=== PATIENT | female | born 1965 | race Caucasian/White ===

== ENCOUNTER 2022-05-03 11:22 | Emergency (ER) | payer OTHER, SELFPAY ==
[2022-05-03 11:37] VITALS: BP 126/78; PULSE 76; RESP 18; TEMP 37.2; O2SAT 99; BMI 33.5
--- NOTE | 2022-05-03 12:15 | CRLHL7_ITS ---
For Patients: As a result of the Century Cures Act, medical imaging exams and procedure reports are released immediately into your electronic medical record. You may view this report before your referring provider. If you have questions, please contact your health care provider. Indication: Sinus pain and pressure, positive Covid last week Technique: Noncontrast CT of the paranasal sinuses. Coronal and sagittal reformats. Bone and soft tissue algorithms. Comparison: No relevant comparison studies available at this institution. Findings: Frontal sinuses: The frontal sinuses and frontal recesses are clear. Ethmoid air cells: The ethmoid air cells are clear. Symmetric depths of the olfactory fossa. The anterior ethmoidal arteries are well-covered by bone. Sphenoid sinuses: The sphenoid sinuses and sphenoethmoidal recesses are clear. No optic canal or carotid canal dehiscence. Maxillary sinuses: Mild mucosal thickening along the right alveolar recess. Clear left maxillary sinus and bilateral ostiomeatal units. Nasal cavity: Approximately 5 mm leftward nasal septal deviation with laterally projecting osseous spur contacting the lateral nasal wall.. No av bullosa. No paradoxical turbinates. Skull base, maxilla, TMJ: Periapical lucency associated with the right maxillary 1st molar. Mastoid air cells are clear. Orbits: Unremarkable Imaged intracranial structures: Unremarkable Regional soft tissues: Unremarkable IMPRESSION: 1. Mild mucosal thickening along right maxillary sinus alveolar recess, with underlying periapical lucency associated with the right maxillary 1st molar. 2. Remainder of the sinonasal cavity is clear. 3. Leftward nasal septal deviation measuring 5 mm, with laterally projecting spur contacting the left lateral nasal wall. Please note that all CT scans at this facility use dose modulation, iterative reconstruction, and/or weight-based dosing when appropriate to reduce radiation dose to as low as reasonably achievable. Dictated by Estella Love MD @ 05/03/2022 2:24:11 PM (Electronically Signed)
[2022-05-03 13:05] LABS: Strep A DNA Probe* NOT DETECTED (Not Detectd)
[2022-05-03 13:36] VITALS: BP 125/61; PULSE 76; RESP 16; O2SAT 97
--- NOTE | 2022-05-04 01:27 | ED_ITS ---
HPI - Headache General Chief Complaint: Headache/Migraine Stated Complaint: Headache, vision changes Time Seen by Provider: 05/03/22 11:59 History of Present Illness HPI Narrative: 56-year-old woman presenting to the emergency department with spouse with concern of headache and some visual changes. Was diagnosed with home testing with COVID 12 days ago. [place] [facility] [place] and azithromycin, apparently to ?get ahead of and ?COVID given her history of asthma. Also underlying history of diabetes and peripheral neuropathy. Ms. Eduardo Mcadams is particularly concerned about visual changes where there is sense of blurry vision at distance and it is amplified toward evenings. No loss of vision. Does note a history of a ?stroke? 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 Does also has some left- sided neck pain. She is worried about her sinuses as well and when bends forward feels tremendous pressure in her face. Also has a headache around her eyes. Little sore throat. No fever. No shortness of breath. Related Data Home Medications Medication Instructions Recorded Confirmed azithromycin 250 mg tablet mg 05/03/22 dexamethasone 4 mg tablet mg 05/03/22 gabapentin 300 mg capsule mg 05/03/22 hydrochlorothiazide 25 mg tablet mg 05/03/22 metformin 500 mg tablet,extended mg PO 05/03/22 release 24 hr Allergies Allergy/AdvReac Type Severity Reaction Status Date / Time No Known Drug Allergies Allergy Verified 05/03/22 11:36 Review of Systems Status of ROS: Reports: 10 or more systems reviewed and unremarkable except as noted in History and below PFSH PFS Social History Smoking Status: Never smoker Do you use any of these nicotine containing products: None Second hand tobacco smoke exposure: No How often do you have a drink containing alcohol: 2-3 times a week AUDIT-C Alcohol total score: 3 Non-prescribed substance use: denies use Exam Narrative: Exam Narrative: Pleasant. Of good energy. Skin is warm and dry. Cranial nerves 2-12 intact. There is no nystagmus. Funduscopic exam actually appears to show some rather healthy vasculature. Breathing easily. Lungs are clear. Heart is in a regular rate and rhythm. No murmur rub or gallop identified. Neck is supple mildly uncomfortable to rotate to extremes particularly to the left. She is tender at the upper left sternocleidomastoid muscle but I think even more anterior to that in the upper lymph node chain. Do not appreciate though discrete lymphadenopathy. Oropharynx with bright red macules and suggestion of some minor blistering scattered over the left hard to soft palate. Mild edema in the area but no significant asymmetry. These lesions do cross midline. Mouth is moist. Dentition in good repair. No other rashes are appreciated. Hands and feet appear/noted to be free of lesions. Const: Vital Signs, click to edit/add: Vital Signs - 24 hr 05/03/22 11:37 05/03/22 13:36 Temperature 99.0 F Pulse Rate [Right Pulse Oximeter] 76 76 Respiratory Rate 18 16 Blood Pressure [Ri ght Upper Arm] 126/78 125/61 Pulse Oximetry 99 97 Oxygen Delivery Me thod Room Air Room Air Documenting provider has reviewed patient's vital signs: yes Course Vital Signs Vital signs: Initial Vital Signs Temperature 99.0 F 05/03/22 11:37 Temperature Source Temporal Artery Scan 05/03/22 11:37 Pulse Rate 76 05/03/22 11:37 Respiratory Rate 18 05/03/22 11:37 Blood Pressure 126/78 05/03/22 11:37 Blood Pressure Mean 94 05/03/22 11:37 Blood Pressure Position Sitting 05/03/22 11:37 Pulse Oximetry 99 05/03/22 11:37 Oxygen Delivery Method 05/03/22 11:37 Vital Signs Temperature 99.0 F 05/03/22 11:37 Pulse Rate 76 05/03/22 11:37 Respiratory Rate 18 05/03/22 11:37 Blood Pressure 126/78 05/03/22 11:37 Pulse Oximetry 99 05/03/22 11:37 Oxygen Delivery Method 05/03/22 11:37 Temperature 99.0 F 05/03/22 11:37 Pulse Rate 76 05/03/22 13:36 Respiratory Rate 16 05/03/22 13:36 Blood Pressure 125/61 05/03/22 13:36 Pulse Oximetry 97 05/03/22 13:36 Oxygen Delivery Method 05/03/22 13:36 MDM - Headache MDM Narrative Medical decision making narrative: Does not appear to desire interventional treatment at this time. I proposed swabbing throat potentially for strep though I think this is more likely stomatitis. Has significant concerns regarding potential sinus problem; imaging available to me would allow us to do a sinus CT for more definitive assessment. We do decide to proceed with that. Strep testing ultimately was negative; not unexpected. Sinus CT reviewed by me shows some very mild mucosal thickening in the right maxillary sinus Over-read by Radiology obtained after patient departure. IMPRESSION: 1. Mild mucosal thickening along right maxillary sinus alveolar recess, with underlying periapical lucency associated with the right maxillary 1st molar. 2. Remainder of the sinonasal cavity is clear. 3. Leftward nasal septal deviation measuring 5 mm, with laterally projecting spur contacting the left lateral nasal wall. Lab Data Attestation: I reviewed the patient's lab results. Labs: Lab Results 05/03/22 Range/Units 12:13 Group A Strep DNA NOT DETECTED (Not Detectd) Discharge Plan Discharge Clinical Impression: Reactive cervical lymphadenopathy, COVID-19, Stomatitis Patient Disposition: Home w/ Parent or Adult Condition: Stable Additional Instructions: Stay well-hydrated. Return for marked increase in pain with neck rotation or significant difficulty swallowing for example not being able to maintain secretions. Can take up to 800 mg of ibuprofen or up to 1000 mg of acetaminophen per dose. Alternative to the ibuprofen might be up to 500 mg naproxen 2 times daily. Might try anesthetic throat lozenges or sprays for increasing discomfort in your throat/mouth. I would follow up in Ophthalmology for an eye recheck soon. I will call you for any further findings on imaging. (given radiology over-read of sinus CT and symptoms, consider ENT follow-up. Does not appear to have dental pain) Prescriptions: No Action azithromycin 250 mg tablet dexamethasone 4 mg tablet gabapentin 300 mg capsule Label Comments: TAKE 1 CAPSULE BY MOUTH IN THE MORNING AND 2 CAPSULES 2 HOURS BEFORE BEDTIME DAILY hydrochlorothiazide 25 mg tablet Label Comments: TAKE 1 TABLET BY MOUTH ONCE DAILY metformin 500 mg tablet extended release 24 hr PO Label Comments: TAKE 2 TABLETS BY MOUTH TWICE DAILY WITH MEALS . APPOINTMENT REQUIRED FOR FUTURE REFILLS Follow Up/Referrals: Provider,Not a Local [Primary Care Provider] - Stand Alone Forms: [employer] Info Instructions
== END 2022-05-03 14:25 | disposition home or self-care (01) ==
PROVIDERS: Emergency Provider Family Medicine
DX: U07.1 COVID-19 (principal); K12.1 Other forms of stomatitis; R59.1 Generalized enlarged lymph nodes
CPT/HCPCS: 70486; 87651; 99284

== ENCOUNTER 2023-08-12 22:40 | Emergency (ER) | payer OTHER, SELFPAY ==
[2023-08-12 22:46] VITALS: BP 149/84; PULSE 79; RESP 20; TEMP 35.9; O2SAT 98; BMI 36.9
--- NOTE | 2023-08-12 23:19 | XR_ITS ---
Patient: MARIO FRANCOIS Facility:?[facility] Patient ID:?[id number] Site Patient ID:?[id number]. Site :?[id number] Study:?XRay-Chest 2 VIEW-08/12/2023 11:29:59 PM Ordering Physician:CHILO Final Report: INDICATION: Chest pain TECHNIQUE: Chest radiograph 2 views COMPARISON: 02/07/2023 FINDINGS: Mediastinum: The mediastinum is normal in appearance. The heart silhouette is normal in size and morphology. Lung: Both lungs are unremarkable in appearance. No sign of pleural effusion seen. No pneumothorax is identified. Bone and Soft tissue: Unremarkable for age. IMPRESSION: 1. No acute cardiopulmonary disease is seen. Dictated by: Brian Storm MD @ 08/12/2023 23:32:16 Signed by:María Storm MD @08/12/2023 11:32:16 PM (Electronic Signature)
--- NOTE | 2023-08-12 23:20 | ED.GENADULT ---
HPI - General Adult General Chief complaint: Chest Pain Stated complaint: Chest pain, high BP Time Seen by Provider: 08/12/23 23:01 Source: patient Mode of arrival: ambulatory Limitations: no limitations History of Present Illness HPI narrative: 57-year-old female with a history of hypertension, diabetes and family history of coronary artery disease presents to the emergency department with spasm like chest pain that lasted a 45-60 seconds about 1 hour prior to arrival. Does have a history of esophageal spasm but states that this pain felt different. It radiated up to the throat bilaterally. Was accompanied by a vague sensation of slight lightheadedness, no shortness of breath. Cannot reproduce with deep breath, movement or palpation. She checked her blood pressure and it was 162 over 90s. She has no history of DVT or PE. She has had no prior cardiac stress test. No prior echo or history of arrhythmia. When asked about recent exertional symptoms, she states that she gets a little more short of breath going up stairs lately but does not give any specific exertional type chest pain. Admits that she has been more sedentary since the beginning of the year. Her mother went on hospice and then , patient gained probably about 10 lb during this 6 week. It admits to a lot of more intense emotional feelings. No nausea or vomiting, no injury or trauma. Did take 3 baby aspirin prior to coming to ED. denies prior history of similar symptoms. Did not try any other interventions prior to coming to ED. not currently symptomatic. Past medical history notable for hypertension, diabetes, neuropathy. Home meds are hydrochlorothiazide for her hypertension, metformin for diabetes, gabapentin for neuropathy and rosuvastatin. Family history notable for quadruple bypass in father in his late 60s, mom with a history of low blood pressure and had a pacemaker. No family history of DVT or PE. Nonsmoker. No allergies. ROS notable for the chest symptoms as described above only, otherwise denies times 12 systems. Related Data Home Medications Medication Instructions Recorded Confirmed gabapentin 300 mg capsule 300 mg 05/03/22 02/07/23 hydrochlorothiazide 25 mg tablet 25 mg 05/03/22 02/07/23 metformin 500 mg tablet,extended 2,000 mg PO 05/03/22 02/07/23 release 24 hr estradiol 0.01% (0.1 mg/gram) vaginal 10/20/23 10/20/23 vaginal cream rosuvastatin 10 mg tablet 10 mg PO QPM 02/07/23 08/12/23 Previous Rx's Medication Instructions Recorded albuterol sulfate 90 mcg/actuation 2 puff inhalation Q4-6H PRN 02/07/23 aerosol inhaler shortness of breath or wheezing #6.7 grams famotidine 20 mg tablet 20 mg PO DAILY #30 tabs 08/13/23 Allergies Allergy/AdvReac Type Severity Reaction Status Date / Time No Known Drug Allergies Allergy Verified 02/07/23 18:33 PFSH PFS Social History Smoking Status: Never smoker Do you use any of these nicotine containing products: None Second hand tobacco smoke exposure: No How often do you have a drink containing alcohol: 2-3 times a week AUDIT-C Alcohol total score: 3 Non-prescribed substance use: denies use Exam Const: Vital Signs, click to edit/add: Vital Signs - 24 hr 08/12/23 22:46 Temperature 96.7 F L Pulse Rate [Pulse Oximeter] 79 Respiratory Rate 20 Blood Pressure [Ri ght Upper Arm] 149/84 H Pulse Oximetry 98 Oxygen Delivery Me thod Room Air Documenting provider has reviewed patient's vital signs: yes Common normals: no apparent distress General appearance: cooperative, comfortable and well kempt HENMT: Common normals: normocephalic, moist oral mucous membranes and oropharynx normal Head and scalp: normocephalic Face and sinus: normal facial exam Eye: Common normals: conjunctivae normal General eye: normal appearance of both eyes Conjunctiva: conjunctiva(e) normal Neck & C-Spine: Common normals: full ROM and no lymphadenopathy Chest: Common normals: palpation of chest normal Resp: Common normals: normal respiratory effort, no use of accessory muscles and clear to auscultation bilaterally Effort & inspection: able to speak in complete sentences Auscultation: clear to auscultation bilaterally Cardio: Common normals: regular rate, regular rhythm, S1 normal heart sound, S2 normal heart sound and no murmurs Rate: regular rate Rhythm: regular rhythm Heart sounds: S1 normal and S2 normal GI: Common normals: Normal to inspection, nondistended, normoactive bowel sounds present, soft to palpation, non-tender, no hepatosplenomegaly and no masses Palpation: soft and no hepatosplenomegaly Psych: Appearance: well kempt Attitude: engaged Activity/motor behavior: appropriate eye contact Mood and affect: euthymic mood Skin: Common normals: no rashes or lesions noted General skin exam: no rashes or lesions noted Course Course ED Course: Spasm like chest pain at rest with multiple risk factors for coronary artery disease. Differential diagnosis most likely is this was an esophageal spasm. On specific questioning, I do find out she also takes omeprazole though she did not initially listed. Cannot exclude arrhythmia, acute coronary syndrome, pleurisy, GERD, musculoskeletal etiology, among others. Less likely DVT since there was no hypoxia, tachycardia or other exertional symptoms. Recommend EKG, organizational development director, typical labs and chest x-ray. Repeat 2 hour reflex troponin if initial negative. Await findings. Has already had adequate aspirin. Reevaluation(s) Time of Reevaluation #1: 01:12 Reevaluation #1: Re-evaluated patient, informed her of normal testing results. Second troponin has a couple more minutes until results are finalized, will make addendum if unexpectedly abnormal. Patient has a little bit of epigastric area burning but no further return of the spasm like pain that she had a few hours ago. We reviewed her normal x-ray, lab findings. She is somewhat reassured by this. Counseled patient that I do think this is probably reflux and esophageal spasm that caused her symptoms tonight but she does have multiple risk factors for cardiac disease. I would like for her to start taking famotidine 20 mg in the evening in addition to her morning 20 mg omeprazole. She should do this for the next 10 days. If she has any exertional symptoms, increased shortness of breath or other symptoms that her suspicious for cardiac disease, she really should come back to the ED right away. I would like for to make a follow-up with her primary care provider in about a week to discuss how the famotidine therapy is going but also then to discuss scheduling a stress test. She was agreeable to this. Written instructions provided, all questions answered. Vital Signs Vital signs: Initial Vital Signs Temperature 96.7 F L 08/12/23 22:46 Temperature Source Temporal Artery Scan 08/12/23 22:46 Pulse Rate 79 08/12/23 22:46 Respiratory Rate 20 08/12/23 22:46 Blood Pressure 149/84 H 08/12/23 22:46 Blood Pressure Mean 105 08/12/23 22:46 Blood Pressure Position Sitting 08/12/23 22:46 Pulse Oximetry 98 08/12/23 22:46 Oxygen Delivery Method Room Air 08/12/23 22:46 Vital Signs Temperature 96.7 F L 08/12/23 22:46 Pulse Rate 79 08/12/23 22:46 Respiratory Rate 20 08/12/23 22:46 Blood Pressure 149/84 H 08/12/23 22:46 Pulse Oximetry 98 08/12/23 22:46 Oxygen Delivery Method Room Air 08/12/23 22:46 Temperature 96.7 F L 08/12/23 22:46 Pulse Rate 79 08/12/23 22:46 Respiratory Rate 20 08/12/23 22:46 Blood Pressure 149/84 H 08/12/23 22:46 Pulse Oximetry 98 08/12/23 22:46 Oxygen Delivery Method Room Air 08/12/23 22:46 Medical Decision Making Lab Data Lab results reviewed: Yes I reviewed the patient's lab results Lab results narrative: Labs all reassuring Labs: Lab Results 08/12/23 Range/Units 23:35 WBC 6.00 (4.50-11.00) K/uL RBC 4.54 (4.00-5.20) m/uL Hgb 13.6 (12.0-16.0) gm/dL Hct 38.3 (33.0-51.0) % MCV 84 (80-100) fL MCH 30 (26-34) pg MCHC 36 (32-36) gm/dL RDW Coeff of Nita 12.6 (11.5-15.5) % Plt Count 231 (140-440) K/uL Neut % (Auto) 51.4 (42.0-72.0) % Lymph % (Auto) 38.0 (20-44) % [place] % (Auto) 6.3 (0.0-11.0) % Eos % (Auto) 3.7 (0.0-7.0) % Baso % (Auto) 0.3 (0.0-3.0) % Neut # (Auto) 3.08 (1.7-7.0) K/uL Lymph # (Auto) 2.28 (0.90-2.90) K/uL [place] # (Auto) 0.40 (0.00-0.90) K/UL Eos # (Auto) 0.22 (0.00-0.50) K/uL Baso # (Auto) 0.02 (0.00-0.30) K/uL Abs Immat Gran (auto) 0.02 (0.00-0.30) K/uL Imm/Tot Granulo (auto) 0.3 % Sodium 136 (135-149) mmol/L Potassium 3.7 (3.6-5.1) mmol/L Chloride 101 (96-114) mmol/L Carbon Dioxide 30 (20-32) mmol/L Anion Gap 5 L (7-15) mEq/L BUN 18 (7-30) mg/dL Creatinine 0.6 (0.5-1.5) mg/dL Estimated Creat Clear 90.41 Estimated GFR 105 ml/min Glucose 313 H (60-115) mg/dL Calcium 9.5 (8.4-10.6) mg/dL Total Bilirubin 0.5 (0.1-1.5) mg/dL AST 60 H (12-35) U/L ALT 63 H (4-35) U/L Alkaline Phosphatase 109 (40-150) U/L Troponin I < 0.01 L (0.01-0.04) ng/mL C-Reactive Protein 1.0 (0.5-1.0) mg/dL NT-Pro-B Natriuret Pep < 20 pg/mL Total Protein 7.3 (6.0-8.3) g/dL Albumin 4.2 (3.3-5.0) g/dL POC Troponin I 0.00 L (0.01-0.04) ng/ml Imaging Data Chest x-ray: Attestation: I have reviewed the pertinent imaging results. My impression: Normal chest x-ray Radiologist's impression: IMPRESSION: 1. No acute cardiopulmonary disease is seen. ECG Data Attestation: I personally reviewed and interpreted this ECG as follows: Prior ECG tracings: not available for review Interpretation: Normal sinus rhythm, rate 74. Normal intervals and axis. No significant ST or T-wave abnormalities. Good R-wave progression. Normal EKG Discharge Plan Discharge Clinical Impression: At risk for cardiac dysfunction, Spasm of esophagus Patient Disposition: Home w/ Parent or Adult Condition: Improved Instructions: Esophageal Spasm (ED) Additional Instructions: As we discussed, I do think that your symptoms tonight were from gastric reflux and an esophageal spasm. Depending on what part of your esophagus spasms, it can sometimes feel different than other episodes. Thankfully there are no signs of blood clot, heart attack, abnormal heart rhythm, pneumonia, inflammation, or other complication today. This is reassuring. Your given famotidine, a different stomach acid medicine than you usually take. I would like for you to continue taking your omeprazole every morning and add famotidine 20-30 minutes before your evening meal for the next 10 days. Sometimes this extra treatment can help clear up any inflammation and reduce her chance of further episodes. It would be safe to take the famotidine long-term. The recent weight gain you described and stress could certainly be enough to have set this off. There were no signs of heart disease today but you do have many risk factors for heart disease including your family history, high blood pressure, diabetes. The exertion will shortness of breath your having could be a sign that the arteries in your heart are becoming unhealthy. I would like for you to make a follow-up appointment with your primary care provider in 1-2 weeks to discuss whether you should have a stress test. In the meantime, if you have any return of severe symptoms, please come back to the emergency room. Activity Level: No Restrictions Discharge Diet: Regular Prescriptions: New famotidine 20 mg tablet 20 mg PO DAILY Qty: 30 2RF No Action rosuvastatin 10 mg tablet 10 mg PO QPM estradiol 0.01 % (0.1 mg/gram) cream vaginal albuterol sulfate 90 mcg/actuation HFA aerosol inhaler 2 puff inhalation Q4-6H PRN (Reason: shortness of breath or wheezing) Qty: 6.7 0RF gabapentin 300 mg capsule 300 mg Patient Comments: TAKE 1 CAPSULE BY MOUTH IN THE MORNING AND 2 CAPSULES 2 HOURS BEFORE BEDTIME DAILY hydrochlorothiazide 25 mg tablet 25 mg Patient Comments: TAKE 1 TABLET BY MOUTH ONCE DAILY metformin 500 mg tablet extended release 24 hr 2,000 mg PO Patient Comments: TAKE 2 TABLETS BY MOUTH TWICE DAILY WITH MEALS . APPOINTMENT REQUIRED FOR FUTURE REFILLS Follow Up/Referrals: Provider,Not a Local [Primary Care Provider] - Stand Alone Forms: [employer] Info Instructions
--- OUTSIDE RECORDS SUMMARY | 2023-08-12 23:27 | XMS_ITS | Clinical Summary ---
Author Name Unknown Organization [facility] Address [place], [place] [address] Care Team Providers Care Calender Machine Operator Helper Name Role Phone Suri Carmona PA-C Primary Care Provider [phone] Allergies No known active allergies Medications Medication Sig Dispensed Refills Start Date End Date Status CETIRIZINE HCL (ZYRTEC ORAL) Take by mouth. Active medication order composer control Active lisinopril (PRINIVIL; ZESTRIL) 10 mg tabletIndications:Hyp ertension Take 1 tablet by mouth once daily. 30 tablet 0 03/18/2015 Active Social History Tobacco Use Types Packs/Day Years Used Date Smoking Tobacco: Never Alcohol Use Standard Drinks/Week Comments Not Asked 0 (1 standard drink = 0.6 oz pur e alcohol) Sex and Gender Information Value Date Recorded Sex Assigned at Not on file Gender Identity Not on file Sexual Orientation Not on file Obstetrics History Last Filed Vital Signs Vital Sign Reading Time Taken Comments Blood Pressure 151/68 04/24/2022 9:15 PM IMPROVEMENT INTERN Pulse 110 04/24/2022 9:15 PM IMPROVEMENT INTERN Temperature 38.7 ??C (101.7 ??F) 04/24/2022 9:[address] Respiratory Rate 22 04/24/2022 9:15 PM IMPROVEMENT INTERN Oxygen Saturation 99% 04/24/2022 9:15 PM IMPROVEMENT INTERN Inhaled Oxygen Concentration - - Weight 88.5 kg (195 lb) 04/24/2022 9:15 PM IMPROVEMENT INTERN Height 162.6 cm (5' 4) 04/24/2022 9:15 PM IMPROVEMENT INTERN Body Mass Index 33.47 04/24/2022 9:15 PM IMPROVEMENT INTERN Plan of Treatment Health Maintenance Due Date Last Done Comments Tdap 1977 Depression screening for age 12+ 1978 HIV for age 15-65 1981 BMI (ht and wt on same day) for age 18+ 1984 Hepatitis C screening for ag e 18-79 1984 Tetanus booster 1986 Pap test for age 21-65 08/31/1987 Colonoscopy through age 75 08/31/2011 Lipids for age 45-75 08/31/2011 Mammogram for age 45-75 08/31/2011 Zoster (shingles) series for age 50+ (1 of 2) 2016 COVID-19 vaccine series (2022- season) 2022 04/30/2021, 08/01/2020, 07/11/2020 Influenza for age 50-64 12/21/2023 Pneumococcal series for age 6-64 Aged Out No longer eligible b ased on patient's age to complete this topic Care Teams Calender Machine Operator Helper Relationship Specialty Start Date End Date Suri Carmona PA-C 0 [facility] [place] [id number] PCP - General Physician Supervisor Fish Hat[employer]y 04/24/22
--- OUTSIDE RECORDS SUMMARY | 2023-08-12 23:27 | XMS_ITS | Continuity of Care Document ---
Author Name Unknown Organization [facility] Address [address] [address] [place] [address] Phone Care Team Providers Care Physical Therapy Professor Name Role Phone Hadley Garcia MD Unavailable Unavailable Procedures Procedure Date Colonoscopy Flex; Dx (dec Pro) 18 Moderate Sedation, Initial 15 minutes Ju Advance Directives Directive Yes / No Effective Date File Name No Information Encounters Encounter Description Practice Location Reason(s) For Visit Diagnoses Date Provider Providers Copied on Encounter [facility] [place], [address] [address], [place], [place], [id number], tel:[phone] [facility] No Information Jose Butcher. [address] [place] [address], [id number], [place]. tel:[phone] Referring Provider: Hadley Henson, [address] [place] [address], [id number]. tel:[phone] [facility] [place], [address] [address], [place], [place], [id number], tel:[phone] [facility] No Information Jeri Nelson. [address] [place] [address], [id number], [place]. tel:[phone] Family History Family Member Type Diagnosis Age At Onset No Information Immunizations Vaccine Date Status Comments Influenza administered Note: [facility] bi-d irectional interface ; Source: Other Registry Influenza administered Note: [facility] bi-d irectional interface ; Source: Other Registry Influenza administered Note: [facility] bi-d irectional interface ; Source: Other Registry Influenza administered Note: [facility] bi-d irectional interface ; Source: Other Registry Fluzone Quad 6mo or older administered Note: [facility] bi-direct ional interface ; Source: Other Registry tetanus toxoid, reduced diphtheria toxoid, and acellular pertussis vaccine, adsorbed administered Note: [facility] bi-direct ional interface ; Source: Other Registry Influenza, seasonal, injectable administe red Note: [facility] bi- directional interface ; Source: Other Registry tetanus toxoid, reduced diphtheria toxoid, and acellular pertussis vaccine, adsorbed administered Note: [facility] bi-direct ional interface ; Source: Other Registry Influenza, seasonal, injectable administe red Note: [facility] bi- directional interface ; Source: Other Registry Influenza, seasonal, injectable administe red Note: [facility] bi- directional interface ; Source: Other Registry influenza virus vaccine, unspecified formulation administered Note: [facility] bi-di rectional interface ; Source: Other Registry Payers Payer name Insurance type Covered libertarian ID Authoriza tion(s) Preferred [facility] Plan CI [id number] Social History Type Description Quantity Date Captured Comments Sex Female Smoking Status No Information Chief Complaint And Reason For Visit No Information Reason For Referral Reason For Referral No Information History Of Present Illness Encounter Date Complaint History Of Prese nt Illness No Information Functional Status Date Functional Assessmen t No Information Instructions Date Instruction Additional Infor mation No Information Assessments Type Assessment Date No Information Patient Care Teams Name Effective Dates (start - stop) Status Members No Information
--- OUTSIDE RECORDS SUMMARY | 2023-08-12 23:28 | XMS_ITS | Encounter Summary ---
Author Name Unknown Organization [place] Address [facility] [place] [address] Care Team Providers Care Imaging Technologist Name Role Phone Leanna Richardson MD Primary Care Provider + [phone] Leanna Richardson MD Unavailable [phone] Leanna Richardson MD Unavailable [phone] Suri Carmona PA-C Primary Care Provider + [phone] Suri Carmona PA-C Unavailable [phone] Catalina Lowery DPM, Podiatry /Foot and Ankle Surgery Unavailable Encounter Details Date Type Department Care Team (Late st Contact Info) Description 06/17/2017 [facility] Advice [address] [place] [address] Rosaura Ortega, KEIRA Social History Tobacco Use Types Packs/Day Years Used Date Smoking Tobacco: Former Cigarettes Q uit: 04/21/2001 Smokeless Tobacco: Never Comments:formerly smoked onl y a very occ cigarette Alcohol Use Standard Drinks/Week Comments Yes 0 (1 standard drink = 0.6 oz pur e alcohol) occasional Sex and Gender Information Value Date Recorded Sex Assigned at Not on file Gender Identity Not on file Sexual Orientation Choose not to disclose 2020 9:33 PM CDT documented as of this encounter Plan of Treatment Not on file documented as of this encounter Visit Diagnoses Not on filedocumented in this encounter Additional Health Concerns Assessment Noted Time PHQ-9 Depression Total Score: 19 017 9:58 AM CDT documented as of this encounter Care Teams Imaging Technologist Relationship Specialty Start Date End Date Leanna Richardson MD PCP - General Internal Medicine 04/12/15 03/04/21 Leanna Richardson MD [address] [place] [address] PCP - Assigned PCP 04/16/15 06/23/18 Suri Carmona PA-C [address] [place] [address] [place] [address] PCP - General Internal Medicine 03/05/21 Leanna Richardson MD [address] [place] [address] Assigned PCP 04/16/15 03/10/21 Suri Carmona PA-C [address] [place] [address] [place] [address] Assigned PCP 03/11/21 Catalina Lowery DPM, Podiatry/Foot and Ankle Surgery [address] [place] [address] Assigned Musculoskeletal Provider 04/05/23 documented as of this encounter
--- OUTSIDE RECORDS SUMMARY | 2023-08-12 23:28 | XMS_ITS | Encounter Summary ---
Author Name Unknown Organization [place] Address [facility] [place] [address] Care Team Providers Care Judicial Clerk Name Role Phone Leanna Richardson MD Primary Care Provider + [phone] Leanna Richardson MD Unavailable [phone] Leanna Richardson MD Unavailable [phone] Suri Carmona PA-C Primary Care Provider + [phone] Suri Carmona PA-C Unavailable [phone] Catalina Lowery DPM, Podiatry /Foot and Ankle Surgery Unavailable Encounter Details Date Type Department Care Team (Late st Contact Info) Description 05/25/2018 [facility] Medical Advice [address] [place] [address] Rosaura Ortega, KEIRA Social History Tobacco Use Types Packs/Day Years Used Date Smoking Tobacco: Former Cigarettes Q uit: 04/21/2001 Smokeless Tobacco: Never Comments:formerly smoked onl y a very occ cigarette Alcohol Use Standard Drinks/Week Comments Yes 6 (1 standard drink = 0.6 oz pur e alcohol) PHQ-2 Answer Date Recorded PHQ-2 Score 2 04/28/2018 Sex and Gender Information Value Date Recorded Sex Assigned at Not on file Gender Identity Not on file Sexual Orientation Choose not to disclose 2020 9:33 PM CDT documented as of this encounter Plan of Treatment Not on file documented as of this encounter Visit Diagnoses Not on filedocumented in this encounter Additional Health Concerns Assessment Noted Time PHQ-9 Depression Total Score: 1 03/03/20 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 documented as of this encounter Care Teams Judicial Clerk Relationship Specialty Start Date End Date Leanna Richardson MD PCP - General Internal Medicine 04/12/15 03/04/21 Leanna Richardson MD [address] [address] PCP - Assigned PCP 04/16/15 06/23/18 Suri Carmona PA-C [address] [place] [address] [place] [address] PCP - General Internal Medicine 03/05/21 Leanna Richardson MD [address] [place] [address] Assigned PCP 04/16/15 03/10/21 Suri Carmona PA-C [address] [place] [address] [place] [address] Assigned PCP 03/11/21 Catalina Lowery DPM, Podiatry/Foot and Ankle Surgery [address] [place] [address] Assigned Musculoskeletal Provider 04/05/23 documented as of this encounter
--- OUTSIDE RECORDS SUMMARY | 2023-08-12 23:28 | XMS_ITS | Encounter Summary ---
Author Name Unknown Organization [place] Address [facility] [place] [address] Care Team Providers Care Electronic Health Records Specialist Name Role Phone Leanna Richardson MD Primary Care Provider + [phone] Leanna Richardson MD Unavailable [phone] Suri Carmona PA-C Primary Care Provider [phone] Suri Carmona PA-C Unavailable [phone] Catalina LoweryM, Podiatry /Foot and Ankle Surgery Unavailable Encounter Details Date Type Department Care Team (Late st Contact Info) Description 01/09/2021 My[facility] Medical Advice [address] [place] [id number] Pau Baxter, MONIK Social History Tobacco Use Types Packs/Day Years Used Date Smoking Tobacco: Former Cigarettes Q uit: 04/21/2001 Smokeless Tobacco: Never Comments:formerly smoked onl y a very occ cigarette Alcohol Use Standard Drinks/Week Comments Yes 6 (1 standard drink = 0.6 oz pur e alcohol) 2 to 4 times a week PHQ-2 Answer Date Recorded PHQ-2 Score 0 11/19/2019 Sex and Gender Information Value Date Recorded Sex Assigned at Not on file Gender Identity Not on file Sexual Orientation Choose not to disclose 2020 9:33 PM CDT documented as of this encounter Plan of Treatment Not on file documented as of this encounter Visit Diagnoses Not on filedocumented in this encounter Additional Health Concerns Assessment Noted Time PHQ-9 Depression Total Score: 1 08/05/19 20 9:11 AM CDT documented as of this encounter Care Teams Electronic Health Records Specialist Relationship Specialty Start Date End Date Leanna Richardson MD PCP - General Internal Medicine 04/12/15 03/04/21 Suri Carmona PA-C [address] [place] [address] [place] [address] PCP - General Internal Medicine 03/05/21 Leanna Richardson MD [address] [place] [address] Assigned PCP 04/16/15 03/10/21 Suri Carmona PA-C [address] [place] [address] [place] [address] Assigned PCP 03/11/21 Catalina Lowery DPM, Podiatry/Foot and Ankle Surgery [address] [place] [address] Assigned Musculoskeletal Provider 04/05/23 documented as of this encounter
--- OUTSIDE RECORDS SUMMARY | 2023-08-12 23:28 | XMS_ITS | Referral Summary ---
Author Name Unknown Organization [facility] Address [address] [place] [address] Care Team Providers Care Tunnel Inspector Name Role Phone Suri Carmona PA-C Primary Care Provider [phone] Suri Carmona PA-C Unavailable [phone] Catalina Lowery DPM, Podiatry /Foot and Ankle Surgery Unavailable Allergies Active Allergy Reactions Criticality Noted Date Comments No Known Drug Allergy 03/17/2002 Seasonal Allergies 10/01/2010 Medications Medication Sig Dispensed Refills Start Date End Date Status aspirin 81 MG tabletIndications:Ce rebrovascular accident (CVA), unspecified Take 1 tablet (81 mg) by mouth daily 30 tablet 0 07/12/2015 Active cetirizine (ZYRTEC) 10 MG tablet Take 10 mg by mouth daily Active multivitamin w/minerals (THERA-VIT-M) tablet Take 1 tablet by mouth daily 100 tablet 3 12/27/2016 Active omeprazole (PRILOSEC) 20 MG CR capsule Take 20 mg by mouth daily Active fish oil-omega-3 fatty acids 1000 MG capsule Take 2 g by mouth daily Active blood glucose monitoring (NO BRAND SPECIFIED) meter device kitIndications:Contr olled type 2 diabetes mellitus without complication, without long-term current use of insulin (H) Use to test blood sugar 1 times daily or as directed. Preferred blood glucose meter OR supplies to accompany: Blood Glucose Monitor Brands: per insurance. 1 kit 01/09/2021 Active blood glucose (NO BRAND SPECIFIED) test stripIndications:Con trolled type 2 diabetes mellitus without complication, without long-term current use of insulin (H) Use to test blood sugar 1 times daily or as directed. To accompany: Blood Glucose Monitor Brands: per insurance. 100 strip 01/09/2021 Active blood glucose calibration (NO BRAND SPECIFIED) solutionIndications: Controlled type 2 diabetes mellitus without complication, without long-term current use of insulin (H) To accompany: Blood Glucose Monitor Brands: per insurance. 1 each 01/09/2021 Active thin (NO BRAND SPECIFIED) lancetsIndications:C ontrolled type 2 diabetes mellitus without complication, without long-term current use of insulin (H) Use with lanceting device to test blood sugar 1 times daily or as directed. To accompany: Blood Glucose Monitor Brands: per insurance. 100 each 01/09/2021 Active Methylcobalamin (Y91-KTIIAQ PO) Active gabapentin (NEURONTIN) 300 MG capsule Taking 300mg in the AM and 600mg in the Evening 06/23/2020 Active BIOTIN MAXIMUM PO Active hydrochlorothiazide (HYDRODIURIL) 25 MG tabletIndications:Be nign essential hypertension Take 1 tablet (25 mg) by mouth daily 90 tablet 3 09/18/2022 Active metFORMIN (GLUCOPHAGE XR) 500 MG 24 hr tabletIndications:Co ntrolled type 2 diabetes mellitus with diabetic polyneuropathy, without long-term current use of insulin (H) Take 2 tablets (1,000 mg) by mouth 2 times daily (with meals) 360 tablet 3 09/18/2022 Active EPINEPHrine (ANY BX GENERIC EQUIV) 0.3 MG/0.3ML injection 2-packIndications:Hi story of anaphylaxis Inject 0.3 mLs (0.3 mg) into the muscle as needed for anaphylaxis 0.6 mL 3 09/18/2022 Active albuterol (PROAIR HFA/PROVENTIL HFA/VENTOLIN HFA) 108 (90 Base) MCG/ACT inhalerIndications:M ild intermittent asthma without complication Inhale 2 puffs into the lungs every 6 hours as needed for shortness of breath 18 g 3 09/18/2022 Active rosuvastatin (CRESTOR) 10 MG tabletIndications:Co ntrolled type 2 diabetes mellitus with diabetic polyneuropathy, without long-term current use of insulin (H),Mixed hyperlipidemia Take 1 tablet by mouth once daily 90 tablet 2 12/06/2022 Active diclofenac (VOLTAREN) 1 % topical gelIndications:Foot pain, bilateral,Plantar fasciitis, bilateral,Ingrown nail of great toe of left foot,Bilateral pes planus Apply 2 g topically 4 times daily as needed for moderate pain 100 g 3 04/02/2023 Active Active Problems Problem Noted Date Diagnosed Date Controlled type 2 diabetes m ellitus with diabetic polyneuropathy, without long-term current use of insulin 11/19/2019 Class 2 severe obesity due t o excess calories with serious comorbidity and body mass index (BMI) of 36.0 to 36.9 in adult 03/03/2018 CAMI (generalized anxiety disorder) 08/19/2017 Panic disorder without agoraphobia 08/19/2017 Attention deficit hyperactiv ity disorder (ADHD), unspecified ADHD type 03/05/2017 Cerebrovascular accident (CVA), unspecified 06/20 Benign essential hypertension 04/12/2015 Palpitations 08/19/2005 Hx of anaphylaxis 03/17/2002 Enthesopathy of hip region 03/17/2002 Carpal tunnel syndrome 03/17/2002 Mild intermittent asthma Esophageal reflux Resolved Problems Problem Noted Date Diagnosed Date Resolved Date ASCUS of cervix with negative high risk HPV 09/25/2022 09/25/2022 Overview: 2009 ASCUS Pap, Neg HPV. 2010 NIL pap 2013 NIL pap 2016 NIL Pap, Neg HPV 2019 NIL Pap, Neg HPV. Plan cotest in 3 years. 09/18/22 NIL Pap, Neg HPV. Plan cotest in 5 years. (routine screening) Obesity due to excess calori es, unspecified obesity severity 04/12/2015 04/30/2021 Obesity 10/01/2010 04/12/2015 CARDIOVASCULAR SCREENING; LD L GOAL LESS THAN 160 02/18/2010 09/18/2022 Encounter for other general counseling or advice on contraception 03/10/2006 03/26/2006 Overview: Desires tubal ligation Diagnosis updated by automated process. Provider to review and confirm. Previous delivery, antepartum condition or complication 08/19/2005 03/26/2006 Supervision of high-risk pre gnancy of elderly multigravida 08/19/2005 03/26/2006 Overview: Materal age > 35 Diabetes mellitus during pre gnancy, antepartum 08/19/2005 03/28/2006 Overview: Gestational DM with first and current macrosomia Problem list name updated by automated process. Provider to review Abnormal maternal glucose to lerance, antepartum 10/05/2004 02/12/2005 Supervision of high-risk pre gnancy of elderly primigravida 06/10/2004 01/13/2005 Rh negative 05/02/2004 01/13/2005 Diabetes mellitus of mother, complicating , childbirth, or the puerperium, unspecified as to episode of care(648.00) 09/20/2005 Overview: gestational; resolved Immunizations Name Administration Dates Next Due COVID-19 MONOVALENT 12+ (Pfizer) 04/30/2021,07/20,07/11/2020 Influenza (IIV3) PF 03/07/2006,03/17/2002 Influenza Vaccine, 6+MO IM ( QUADRIVALENT W/PRESERVATIVES) 03/05/2021,03/06/2017,02/06/2016 TD,PF 7+ (Tenivac) 08/03/1996 TDAP (Adacel,Boostrix) 09/18/2022,12/27/2011 TDAP Vaccine (Adacel) 09/01/2009 Zoster recombinant adjuvanted (SHINGRIX) 023 Social History Tobacco Use Types Packs/Day Years Used Date Smoking Tobacco: Former Cigarettes Q uit: 04/21/2001 Smokeless Tobacco: Never Tobacco Cessation:Counseling Given: Not Answered Comments:Not a smoker. See above. Alcohol Use Standard Drinks/Week Comments Yes 6 (1 standard drink = 0.6 oz pur e alcohol) 2 to 4 times a week PHQ-2 Answer Date Recorded PHQ-2 Score 0 09/18/2022 Adolescent Education Answer Date Record ed Getting School Help Needed Not on file 01/12 Sex and Gender Information Value Date Recorded Sex Assigned at Not on file Gender Identity Not on file Sexual Orientation Choose not to disclose 2020 9:33 PM CDT Last Filed Vital Signs Vital Sign Reading Time Taken Comments Blood Pressure 118/78 04/02/2023 2:19 PM NAPPER FIXER Pulse 70 09/18/2022 11:19 AM CDT Temperature 36.9 ??C (98.5 ??F) 09/18/2022 11:19 AM C DT Respiratory Rate 14 09/18/2022 11:19 AM CDT Oxygen Saturation 97% 09/18/2022 11:19 AM CDT Inhaled Oxygen Concentration - - Weight 93.4 kg (206 lb) 04/02/2023 2:19 PM NAPPER FIXER Height 160.4 cm (5' 3.15) 09/18/2022 11:19 AM C DT Body Mass Index 36.32 09/18/2022 11:19 AM CDT Plan of Treatment Not on file Procedures Procedure Name Priority Date/Time Associated Diagnosis Comments ALBUMIN RANDOM URINE QUANTITATIVE Routine 09/18/2022 1:48 PM CDT Controlled type 2 diabetes mellitus with diabetic polyneuropathy, without long-term current use of insulin (H) LIPID REFLEX TO DIRECT LDL PANEL Routine 09/18/2022 12:10 PM CDT Controlled type 2 diabetes mellitus with diabetic polyneuropathy, without long-term current use of insulin (H) Mixed hyperlipidemia BASIC METABOLIC PANEL Routine 09/18/2022 12:10 PM CDT Benign essential hypertension Controlled type 2 diabetes mellitus with diabetic polyneuropathy, without long-term current use of insulin (H) HEMOGLOBIN A1C Routine 09/18/2022 12:10 PM CDT Controlled type 2 diabetes mellitus with diabetic polyneuropathy, without long-term current use of insulin (H) GYNECOLOGIC CYTOLOGY Routine 09/18/2022 11:35 AM CDT Cervical cancer screening HPV HIGH RISK TYPES DNA CERVICAL Routine 09/18/2022 11:35 AM CDT Cervical cancer screening EYE EXAM - HIM SCAN Routine 04/21/2022 MA SCREENING DIGITAL BILATERAL Routine 05/17/2021 9:02 AM NAPPER FIXER Encounter for screening mammogram for breast cancer COLONOSCOPY Routine 09/22/2017 7:31 AM CDT HEPATITIS C ANTIBODY Routine 08/07/2017 7:51 AM CDT Elevated liver function tests ASTHMA ACTION PLAN Routine 10/24/2014 4: 18 PM CDT HCL HIV 1 & 2 ANTIBODY Routine 08/13/2005 8:46 AM CDT Supervis Other Normal Preg from Last 3 Months or Most Recently Relevant to Health Maintenance Results * Albumin Random Urine Quantitative with Creat Ratio (09/18/2022 1:48 PM CDT) Creatinine Urine mg/dL 31.5 mg/dL 09/18/2022 10:55 PM CDT [facility] Comment:The reference ranges have not been established in urine creatinine. The results should be integrated into the clinical context for interpretation. Albumin Urine mg/L <12.0 mg/L 2022 10:55 PM CDT [facility] Comment:The reference ranges have not been established in urine albumin. The results should be integrated into the clinical context for interpretation. Albumin Urine mg/g Cr 09/18/2022 10:55 PM CDT [facility] Comment: Unable to calculate, urine albumin and/or urine creatinine is outside detectable limits. Microalbuminuria is defined as an albumin:creatinine ratio of 17 to 299 for males and 25 to 299 for females. A ratio of albumin:creatinine of 300 or higher is indicative of overt proteinuria. Due to biologic variability, positive results should be confirmed by a second, first-morning random or 24-hour timed urine specimen. If there is discrepancy, a third specimen is recommended. When 2 out of 3 results are in the microalbuminuria range, this is evidence for incipient nephropathy and warrants increased efforts at glucose control, blood pressure control, and institution of therapy with an tpkpwkzkonl-yoduuunjwl-lfkpwl (ETELVINA) inhibitor (if the patient can tolerate it). ?? Urine MID-STREAM URINE SPECIMEN / Unknown Non-blood Collection / Unknown 09/18/2022 1:48 PM CDT 09/18/2022 1:48 PM CDT Suri Carmona PA-C LAB - URINE ORDERA BLES [facility] Lab [address] [facility], [address] [address], [facility] [phone] * (ABNORMAL) Lipid panel reflex to direct LDL Fasting (09/18/2022 12:10 PM CDT) Cholesterol 197 <200 mg/dL 09/18/2022 10:39 PM CDT [facility] Triglycerides 178(H) <150 mg/dL 09/18/2022 10:39 PM CDT [facility] Direct Measure HDL 41(L) >=50 mg/dL 09/18/2022 10:39 PM CDT [facility] LDL Cholesterol Calculated 120(H) <=100 mg/dL 09/18/2022 10:39 PM CDT [facility] Non HDL Cholesterol 156(H) <130 mg/dL 09/18/2022 10:39 PM CDT [facility] Blood STRUCTURE OF LEFT UPPER LIMB / Unknown Venipuncture / Unknown 09/18/2022 12:10 PM CDT 09/18/2022 12:10 PM CDT Narrative [facility] - 09/18/2022 10:39 PM CDT Cholesterol Desirable: ??<200 mg/dL Triglycerides Normal: ??Less than 150 mg/dL Borderline High: ??150-199 mg/dL High: ??200-499 mg/dL Very High: ??Greater than or equal to 500 mg/dL Direct Measure HDL Female: ??Greater than or equal to 50 mg/dL Male: ??Greater than or equal to 40 mg/dL LDL Cholesterol Desirable: ??<100mg/dL Above Desirable: ??100-129 mg/dL Borderline High: ??130-159 mg/dL High: ??160-189 mg/dL Very High: ??>= 190 mg/dL Non HDL Cholesterol Desirable: ??130 mg/dL Above Desirable: ??130-159 mg/dL Borderline High: ??160-189 mg/dL High: ??190-219 mg/dL Very High: ??Greater than or equal to 220 mg/dL Suri Bansal Chromy PA-C LAB - BLOOD ORDERA BLES [facility] [address] [facility], [address] [place] [address], [facility] [phone] * (ABNORMAL) HEMOGLOBIN A1C (09/18/2022 12:10 PM CDT) Hemoglobin A1C 6.9(H) 0.0 - 5.6 % 09/18/2022 12:23 PM CDT [facility] Comment: Normal <5.7% Prediabetes 5.7-6.4% ?? Diabetes 6.5% or higher Note: Adopted from ADA consensus guidelines. Blood STRUCTURE OF LEFT UPPER LIMB / Unknown Venipuncture / Unknown 09/18/2022 12:10 PM CDT 09/18/2022 12:10 PM CDT Suri Bansal Chromy PA-C LAB - BLOOD ORDERA BLES [facility] [address] Lab (no room number, 1st floor of clinic) [place] [address], [facility] [phone] * (ABNORMAL) BASIC METABOLIC PANEL (09/18/2022 12:10 PM CDT) Sodium 139 136 - 145 mmol/L 09/18/2022 10:39 PM CDT [facility] Potassium 4.1 3.4 - 5.3 mmol/L 09/18/2022 10:39 PM CDT [facility] Chloride 101 98 - 107 mmol/L 09/18/2022 10:39 PM CDT [facility] Carbon Dioxide (CO2) 25 22 - 29 mmol/L 09/18/2022 10:39 PM CDT [facility] Anion Gap 13 7 - 15 mmol/L 09/18/2022 10:39 PM CDT [facility] Urea Nitrogen 14.3 6.0 - 20.0 mg/dL 09/18/2022 10:39 PM CDT [facility] Creatinine 0.59 0.51 - 0.95 mg/dL 09/18/2022 10:39 PM CDT [facility] Calcium 9.5 8.6 - 10.0 mg/dL 09/18/2022 10:39 PM CDT [facility] Glucose 124(H) 70 - 99 mg/dL 09/18/2022 10:39 PM CDT [facility] GFR Estimate >90 >60 mL/min/1.7 3m2 09/18/2022 10:39 PM CDT [facility] Comment:eGFR calculated usin 2020 CKD-EPI equation. Blood STRUCTURE OF LEFT UPPER LIMB / Unknown Venipuncture / Unknown 09/18/2022 12:10 PM CDT 09/18/2022 12:10 PM CDT Suri Carmona PA-C LAB - BLOOD ORDERA BLES [facility] Core Lab [address] [facility], [address] [place] [address], [facility] [phone] * Pap Screen with HPV - recommended age 30 - 65 years (09/18/2022 11:35 AM CDT) Interpretation Negative for Intraepithelial Lesion or Malignancy (NILM) 09/20/2022 2:47 PM CDT [facility] Comment Papanicolaou Test Limitations: Cervical cytology is a screening test with limited sensitivity, and regular screening is critical for cancer prevention. Pap tests are primarily effective for the diagnosis/prevent ion of squamous cell carcinoma, not adenocarcinoma or other cancers. 09/20/2022 2:47 PM CDT [facility] Specimen Adequacy Satisfactory for evaluation, endocerv/transfor mation zone component absent, atrophy 09/20/2022 2:47 PM CDT [facility] Clinical Information none 09/20/2022 2:47 PM CDT [facility] Reflex Testing Yes regardless of result 09/20/2022 2:47 PM CDT [facility] Previous Abnormal? No 09/20/2022 2:47 PM CDT [facility] Performing Labs The technical component of this testing was completed at [facility] 09/20/2022 2:47 PM CDT [facility] Brushing CERVIX UTERI STRUCTURE / Unknown 09/18/2022 11:35 AM CDT 09/18/2022 12:15 PM CDT Suri BROCK [facility] Specialty Lab [address] [facility], [address] [address], [facility] [phone] * HPV High Risk Types DNA Cervical (09/18/2022 11:35 AM CDT) Other HR HPV Negative Negative 09/23/2022 4:03 PM CDT [facility] HPV16 DNA Negative Negative 09/23/2022 4:03 PM CDT [facility] HPV18 DNA Negative Negative 09/23/2022 4:03 PM CDT [facility] FINAL DIAGNOSIS This patient's sample is negative for HPV DNA. This test was developed and its performance characteristics determined by the [facility]. It has not been cleared or approved by the FDA. The laboratory is regulated under CLIA as qualified to perform high-complexity testing. This test is used for clinical purposes. It should not be regarded as investigational or for research. METHODOLOGY: The Nano Dylan 4800 system uses automated extraction, simultaneous amplification of HPV (L1 region) and beta-globin, followed by real time detection of fluorescent labeled HPV and beta globin using specific oligonucleotide probes. The test specifically identifies types HPV 16 DNA and HPV 18 DNA while concurrently detecting the rest of the high risk types (31, 33, 35, 39, 45, 51, 52, 56, 58, 59, 66 or 68). COMMENTS: This test is not intended for use as a screening device for woman under age 30 with normal cervical cytology. Results should be correlated with cytologic and histologic findings. Close clinical followup is recommended. 09/23/2022 4:03 PM CDT [facility] Brushing CERVIX UTERI STRUCTURE / Unknown Non-blood Collection / Unknown 09/18/2022 11:35 AM CDT 09/23/2022 8:14 AM CDT Suri Carmona PA-C LAB - BLOOD ORDERA BLES [facility] [address] [facility], [address] [address], [facility] [phone] * Eye Exam - HIM Scan (04/21/2022) RETINOPATHY UNKNOWN Narrative Darcy Cosme - 04/21/2022 Cece Casey CMA ??P Abstract Quality Initiatives Please abstract the following data from this visit with this patient into the appropriate field in Epic: Eye exam with ophthalmology on this date: Apr 2022 Exam Location: [facility] Patient Reported OTHER * MA SCREENING DIGITAL BILAT - Future (s+30) (05/17/2021 9:02 AM NAPPER FIXER) Anatomical Region Laterality Modality Breast Bilateral Mammography Narrative 05/17/2021 10:47 AM NAPPER FIXER BILATERAL FULL FIELD DIGITAL SCREENING MAMMOGRAM Performed on: 05/17/21 Compared to: 11/24/2019 and 09/25/2009 Technique: This study was evaluated with the assistance of Computer-Aided Detection. Findings: The breasts are almost entirely fatty. ??There is no radiographic evidence of malignancy. IMPRESSION: ACR BI-RADS Category 1: Negative RECOMMENDED FOLLOW-UP: Annual routine screening mammogram The results and recommendations of this examination will be communicated to the patient. Suri ALEXANDER-Seamus [facility] MAMMOGRAPHY OR DERABLES * COLONOSCOPY (09/22/2017 7:31 AM CDT) COLONOSCOPY [facility] Patient Name: Lou Clark Abbe Procedure Date: 09/22/2017 7:31 AM ? Date of : 1965 ?Admit Type: Outpatient Age: 52 ? Gender: Female Attending MD: Omar Wilcox MD ?Total Sedation Time: 14 minutes Instrument Name: 131 ? Procedure: ?Colonoscopy Indications: ?Screening for colorectal malignant neoplasm Providers: ?Omar Wilcox MD (Doctor) Referring MD: ? Leanna Richardson MD (Referring MD), Doug Rodriguez ?MD Reji (Referring MD) Medicines: ?Midazolam 2 mg IV, Fentanyl 100 micrograms IV Complications: ?No immediate complications. Procedure: ?Pre-Anesthesia Assessment: ?- Prior to the procedure, a History and Physical ?was performed, and patient medications and ?allergies were reviewed. The patient is competent. ?The risks and benefits of the procedure and the ?sedation options and risks were discussed with the ?patient. All questions were answered and informed ?consent was obtained. Patient identification and ?proposed procedure were verified by the physician ?in the endoscopy suite. Mental Status Examination: ?alert and oriented. Airway Examination: normal ?oropharyngeal airway and neck mobility. Respiratory ?Examination: clear to auscultation. CV Examination: ?normal. Prophylactic Antibiotics: The patient does ?not require prophylactic antibiotics. Prior ?Anticoagulants: The patient has taken no previous ?anticoagulant or antiplatelet agents. ASA Grade ?Assessment: II - A patient with mild systemic ?disease. After reviewing the risks and benefits, ?the patient was deemed in satisfactory condition to ?undergo the procedure. The anesthesia plan was to ?use moderate sedation / analgesia (conscious ?sedation). Immediately prior to administration of ?medications, the patient was re-assessed for ?adequacy to receive sedatives. The heart rate, ?respiratory rate, oxygen saturations, blood ?pressure, adequacy of pulmonary ventilation, and ?response to care were monitored throughout the ?procedure. The physical status of the patient was ?re-assessed after the procedure. ?After obtaining informed consent, the colonoscope ?was passed under direct vision. Throughout the ?procedure, the patient's blood pressure, pulse, and ?oxygen saturations were monitored continuously. The ?Olympus Peds Colonoscope Model #[id number]-H190L, ?[place]#131, SN#[id number] was introduced through the ?anus and advanced to the cecum, identified by ?appendiceal orifice and ileocecal valve. The ?colonoscopy was performed without difficulty. The ?patient tolerated the procedure fairly well. The ?quality of the bowel preparation was excellent. ? Findings: ? The entire examined colon appeared normal on direct and retroflexion ? views. ? Impression: ? - The entire examined colon is normal on direct and ?retroflexion views. ?- No specimens collected. Recommendation: ? Repeat in ten years. ? _ Omar Wilcox MD 09/22/2017 7:58:07 AM I was physically present for the entire viewing portion of the exam. Omar Wilcox MD Number of Addenda: 0 Note Initiated On: 09/22/2017 7:31 AM MRN: ?[id number] Procedure Date: ? 09/22/2017 7:31:52 AM Scope Withdrawal Time: 0 hours 8 minutes 7 seconds Total Procedure Duration: 0 hours 13 minutes 19 seconds Estimated Blood Loss: ? Scope In: 7:42:35 AM Scope Out: 7:55:54 AM RADIOLOGY RESULTS 09/22/2017 7:31 AM CDT Doug Mednoza MD PROCEDURES RADIOLOGY RESULTS * Hepatitis C antibody (08/07/2017 7:51 AM CDT) Hepatitis C Antibody Nonreactive NR^Nonre active 08/07/2017 8:54 PM CDT [facility] Comment: Assay performance characteristics have not been established for newborns, infants, and children Blood specimen (specimen) 08/07/2017 7:51 AM CDT 08/07/2017 7:56 AM CDT Leanna Richardson MD LAB - BLOOD ORDERA BLES [facility] [address] [place] [address] * HIV-1/HIV-2, SCREEN (08/13/2005 8:46 AM CDT) HIV 1&2 Antibody Negative NEG [facility] 08/13/2005 8:46 AM CDT 08/13/2005 8:51 AM CDT Doug Mendoza MD LABORATORY [facility] from Last 3 Months or Most Recently Relevant to Health Maintenance Care Teams Tunnel Inspector Relationship Specialty Start Date End Date Suri Carmona PA-C [address] [place] [address] BROOKE VERDUZCO [address] PCP - General Internal Medicine 03/05/21 Suri Carmona PA-C [address] [place] [address] BROOKE VERDUZCO [address] Assigned PCP 03/11/21 Catalina Lowery, RUBEN, Podiatry/Foot and Ankle Surgery [address] [place] [address] Assigned Musculoskeletal Provider 04/05/23
--- OUTSIDE RECORDS SUMMARY | 2023-08-12 23:28 | XMS_ITS | Encounter Summary ---
Author Name Unknown Organization [facility] Address [facility] [place] [address] Care Team Providers Care Wrapper Cashier Name Role Phone Leanna Richardson MD Primary Care Provider + [phone] Leanna Richardson MD Unavailable [phone] Leanna Richardson MD Unavailable [phone] Suri Carmona PA-C Primary Care Provider + [phone] Suri Carmona PA-C Unavailable [phone] Catalina Lowery DPM, Podiatry /Foot and Ankle Surgery Unavailable Encounter Details Date Type Department Care Team (Late st Contact Info) Description 06/19/2016 [facility] Medical Advice [address] [place] [address] Fidelia Crouch LPN Social History Tobacco Use Types Packs/Day Years [...] Diagnoses Not on filedocumented in this encounter Care Teams Wrapper Cashier Relationship Specialty Start Date End Date Leanna Richardson MD PCP - General Internal Medicine 04/12/15 03/04/21 Leanna Richardson MD [address] [place] [address] PCP - Assigned PCP 04/16/15 06/23/18 Suri Carmona PA-C [address] [place] [address] BROOKE VERDUZCO [address] PCP - General Internal Medicine 03/05/21 Leanna Richardson MD [address] [place] [id number] Assigned PCP 04/16/15 03/10/21 Suri Carmona PA-C [address] [place] [address] BROOKE VERDUZCO [address] Assigned PCP 03/11/21 Catalina Lowery, DPJenae, Podiatry/Foot and Ankle Surgery [address] [place] [address] Assigned Musculoskeletal Provider 04/05/23 documented as of this encounter
--- OUTSIDE RECORDS SUMMARY | 2023-08-12 23:28 | XMS_ITS | Encounter Summary ---
Author Name Unknown Organization [facility] Address [address] [place] [address] Care Team Providers Care Health Program Analyst Name Role Phone Suri Carmona PA-C Primary Care Provider [phone]- [phone] Suri Carmona PA-C Unavailable [phone] Catalina Lowery DPM, Podiatry /Foot and Ankle Surgery Unavailable Encounter Details Date Type Department Care Team (Late st Contact Info) Description 07/23/2022 [facility] Lalo Emanuel [address] [phone] Joie Perrin Social History Tobacco Use Types Packs/Day Years Used Date Smoking Tobacco: Former Cigarettes Q uit: 04/21/2001 Smokeless Tobacco: Never Comments:Not a smoker. See diamond velazquez. Alcohol Use Standard Drinks/Week Comments Yes 6 (1 standard drink = 0.6 oz pur e alcohol) 2 to 4 times a week PHQ-2 Answer Date Recorded PHQ-2 Score 0 04/30/2021 Sex and Gender Information Value Date Recorded [...] documented as of this encounter Care Teams Health Program Analyst Relationship Specialty Start Date End Date Suri Carmona PA-C [address] [place] [address] BROOKE VERDUZCO [address] PCP - General Internal Medicine 03/05/21 Suri Carmona PA-C [address] [place] [address] BROOKE VERDUZCO [address] Assigned PCP 03/11/21 Catalina Lowery DPM, Podiatry/Foot and Ankle Surgery [address] [place] [address] Assigned Musculoskeletal Provider 04/05/23 documented as of this encounter
--- OUTSIDE RECORDS SUMMARY | 2023-08-12 23:28 | XMS_ITS | Encounter Summary ---
Author Name Unknown Organization [place] Address [address] [place] [address] Care Team Providers Care Dry Box Operator Name Role Phone Suri Carmona PA-C Primary Care Provider +- [phone] Suri Carmona PA-C Unavailable [phone] Catalina Lowery DPM, Podiatry /Foot and Ankle Surgery Unavailable Encounter Details Date Type Department Care Team (Late st Contact Info) Description 08/22/2021 [facility] Lalo Emanuel [address] [address] LeMaribel Social History Tobacco Use Types Packs/Day Years [...] documented as of this encounter Care Teams Dry Box Operator Relationship Specialty Start Date End Date Suri Carmona PA-C [address] [place] [address] BROOKE VERDUZCO [address] PCP - General Internal Medicine 03/05/21 Suri Carmona PA-C [address] [place] [address] BROOKE VERDUZCO [address] Assigned PCP 03/11/21 Catalina Lowery DPM, Podiatry/Foot and Ankle Surgery [address] [address] Assigned Musculoskeletal Provider 04/05/23 documented as of this encounter
--- OUTSIDE RECORDS SUMMARY | 2023-08-12 23:28 | XMS_ITS | Continuity of Care Document ---
Author Name Unknown Organization [facility] Address [address] [address] [place] [address] Phone Care Team Providers Care Oil Well Pumper Name Role Phone Hadley Garcia MD Unavailable Unavailable Procedures Procedure Date Colonoscopy Flex; Dx (dec Pro) 18 Moderate Sedation, Initial 15 minutes Ju Advance Directives Directive Yes / No Effective Date File Name No Information Encounters Encounter Description Practice Location Reason(s) For Visit Diagnoses Date Provider Providers Copied on Encounter [facility], [address] [address], [place], [place], [id number], tel:[phone] [facility] No Information Jose Butcher. [address] [place] [address], [id number], [place]. tel:[phone] Referring Provider: Hadley Henson, [address] [place] [address], [address]. tel:[phone] [facility], [address] [address], [place], [place], [id number], tel:[phone] [facility] No Information eJri Nelson. [address] [place] [address], [id number], [place]. tel:[phone] Family History Family Member Type Diagnosis Age [...] Registry Payers Payer name Insurance type Covered constitution party ID Authoriza tion(s) Preferred [employer] [facility] Plan CI [id number] Social History Type Description Quantity Date Captured [...]
--- OUTSIDE RECORDS SUMMARY | 2023-08-12 23:28 | XMS_ITS | Encounter Summary ---
Author Name Unknown Organization [place] Address [facility] [place] [address] Care Team Providers Care Director Customer Name Role Phone Leanna Richardson MD Primary Care Provider [phone]- [phone] Leanna Richardson MD Unavailable [phone] Suri Carmona PA-C Primary Care Provider [phone]- [phone] Suri Carmona PA-C Unavailable [phone] Catalina LoweryM, Podiatry /Foot and Ankle Surgery Unavailable Reason for Visit * Reason Comments Medication Refill Encounter Details Date Type Department Care Team (Late st Contact Info) Description 03/03/[address] [place] [address] Leanna Richardson MD [address] [place] [address] [id number] Medication Refill Social History Tobacco Use Types Packs/Day Years Used Date Smoking Tobacco: Former Cigarettes Q uit: 04/21/2001 Smokeless Tobacco: Never Comments:formerly smoked onl y a very occ cigarette Alcohol Use Standard Drinks/Week Comments Yes 6 (1 standard drink = 0.6 oz pur e alcohol) 2 to 4 times a week PHQ-2 Answer Date Recorded PHQ-2 Score 0 03/05/2021 Sex and Gender Information Value Date Recorded Sex Assigned at Not on file Gender Identity Not on file Sexual Orientation Choose not to disclose 2020 9:33 PM CDT documented as of this encounter Miscellaneous Notes * Telephone Encounter - Ally Em RN - 03/06/2021 2:17 PM CST Medication refused, duplicate. Refused Prescriptions: Disp Refills hydrochlorothiazide (HYDRODIURIL) 25 MG ta*90 tab*0 Sig: Take 1 tablet by mouth once daily IRONER documented in this encounter Plan of Treatment Not on file documented as of this encounter Visit Diagnoses Diagnosis Benign essential hypertension Essential hypertension, benign documented in this encounter Additional Health Concerns Assessment Noted Time PHQ-9 Depression Total Score: 1 08/05/19 20 9:11 AM CDT documented as of this encounter Care Teams Director Customer Relationship Specialty Start Date End Date Leanna Richardson MD PCP - General Internal Medicine 04/12/15 03/04/21 Suri Carmona PA-C [address] [place] [address] [place] [address] PCP - General Internal Medicine 03/05/21 Leanna Richardson MD [address] [place] [address] Assigned PCP 04/16/15 03/10/21 Suri Carmona PA-C [address] [place] [address] BROOKE VERDZUCO [address] Assigned PCP 03/11/21 Catalina Lowery DPM, Podiatry/Foot and Ankle Surgery [address] BAIG [address] [place] [address] Assigned Musculoskeletal Provider 04/05/23 documented as of this encounter
--- OUTSIDE RECORDS SUMMARY | 2023-08-12 23:28 | XMS_ITS | Encounter Summary ---
Author Name Unknown Organization [place] Address [facility] [place] [address] Care Team Providers Care Polygraph Technician Name Role Phone Leanna Richardson MD Primary Care Provider [phone] Leanna Richardson MD Unavailable [phone] Suri Carmona PA-C Primary Care Provider [phone]- [phone] Suri Carmona PA-C Unavailable [phone] Catalina LoweryM, Podiatry /Foot and Ankle Surgery Unavailable Reason for Visit * Reason Comments Medication Refill Encounter Details Date Type Department Care Team (Late st Contact Info) Description 01/01/[address] [place] [phone] Leanna Richardson MD [address] [place] [address] [phone] Medication Refill Social History Tobacco Use Types [...] encounter Miscellaneous Notes * Telephone Encounter - Gary Perez RN - 01/02/2021 11:12 AM CDT Prescription approved per [facility] Refill Protocol. documented in this encounter Plan of Treatment Not on file documented as of this encounter Visit Diagnoses Diagnosis Controlled type 2 diabetes mellitus without complication, without long-term current use of insulin (H) documented in this encounter Additional Health Concerns Assessment Noted Time PHQ-9 Depression Total Score: 1 08/05/19 20 9:11 AM CDT documented as of this encounter Care Teams Polygraph Technician Relationship Specialty Start Date End Date Leanna Richardson MD PCP - General Internal Medicine 04/12/15 03/04/21 Suri Carmona PA-C [address] [place] [address] BROOKE VERDUZCO [address] PCP - General Internal Medicine 03/05/21 Leanna Richardson MD [address] [place] [address] Assigned PCP 04/16/15 03/10/21 Suri Carmona PA-C [address] [place] [address] BROOKE VERDUZCO [address] Assigned PCP 03/11/21 Catalina Lowery DPM, Podiatry/Foot and Ankle Surgery [address] [place] [address] Assigned Musculoskeletal Provider 04/05/23 documented as of this encounter
--- OUTSIDE RECORDS SUMMARY | 2023-08-12 23:28 | XMS_ITS | Encounter Summary ---
Author Name Unknown Organization [place] Address [facility] [place] [address] Care Team Providers Care Retirement Village Manager Name Role Phone Suri Carmona PA-C Primary Care Provider + [phone] Suri Carmona PA-C Unavailable [phone] Catalina Lowery DPM, Podiatry /Foot and Ankle Surgery Unavailable Encounter Details Date Type Department Care Team (Late st Contact Info) Description 04/28/2023 [facility] Jenae [address] [address] Vandana Flores Social History Tobacco Use Types Packs/Day Years [...] documented as of this encounter Care Teams Retirement Village Manager Relationship Specialty Start Date End Date Suri Carmona PA-C [address] [place] [address] BROOKE VERDUZCO [address] PCP - General Internal Medicine 03/05/21 Suri Carmona PA-C [address] [place] [address] BROOKE VERDUZCO [address] Assigned PCP 03/11/21 Catalina Lowery, DPJenae, Podiatry/Foot and Ankle Surgery [address] [place] [address] Assigned Musculoskeletal Provider 04/05/23 documented as of this encounter
--- OUTSIDE RECORDS SUMMARY | 2023-08-12 23:28 | XMS_ITS | Encounter Summary ---
Author Name Unknown Organization [place] Address [facility] [place] [address] Care Team Providers Care Pipe Fitter Ammonia Name Role Phone Suri Carmona PA-C Primary Care Provider [phone]- [phone] Suri Carmona PA-C Unavailable [phone] Catalina Lowery DPM, Podiatry /Foot and Ankle Surgery Unavailable Reason for Visit * Reason Comments Medication Refill Encounter Details Date Type Department Care Team (Late st Contact Info) Description 09/06/[address] [place] [phone] Suri Carmona PA-C [address] [facility] [address] [address] BROOKE VERDUZCO [address] Medication Refill Social History Tobacco Use Types [...] not to disclose 2020 9:33 PM CDT COVID-19 Exposure Response Date Recorded In the last 10 days, have yo u been in contact with someone who was confirmed or suspected to have Coronavirus/COVID-19? No / Unsure 2021 10:01 AM CDT documented as of this encounter Miscellaneous Notes * Telephone Encounter - Alanna Anders RN - 09/06/2021 2:35 PM CDT Prescription approved per [facility] refill protocol. Alanna Anders RN documented in this encounter Plan of Treatment Not on file documented as of this encounter Visit Diagnoses Diagnosis Controlled type 2 diabetes mellitus without complication, without long-term current use of insulin (H) Benign essential hypertension Essential hypertension, benign documented in this encounter Additional Health Concerns Assessment Noted Time PHQ-9 Depression Total Score: 1 08/05/19 20 9:11 AM CDT documented as of this encounter Care Teams Pipe Fitter Ammonia Relationship Specialty Start Date End Date Suri Carmona PA-C [address] [place] [address] BROOKE VERDUZCO [address] PCP - General Internal Medicine 03/05/21 Suri Carmona PA-C [address] [place] [address] BROOKE VERDUZCO [address] Assigned PCP 03/11/21 Catalina Lowery DPM, Podiatry/Foot and Ankle Surgery [address] [facility] [place] [address] Assigned Musculoskeletal Provider 04/05/23 documented as of this encounter
--- OUTSIDE RECORDS SUMMARY | 2023-08-12 23:28 | XMS_ITS | Encounter Summary ---
Author Name Unknown Organization [place] Address [facility] [place] [address] Care Team Providers Care It Operations Manager Name Role Phone Leanna Richardson MD Primary Care Provider [phone] Leanna Richardson MD Unavailable [phone] Suri Carmona PA-C Primary Care Provider [phone] Suri Carmona PA-C Unavailable [phone] Catalina Lowery DPM, Podiatry /Foot and Ankle Surgery Unavailable Reason for Visit * Reason Comments Medication Refill Encounter Details Date Type Department Care Team (Late st Contact Info) Description 02/20/[address] [place] [address] Leanna Richardson MD [address] [place] [address] Medication Refill Social History Tobacco Use Types [...] encounter Miscellaneous Notes * Telephone Encounter - Cecelia Marin RN - 02/22/2020 12:00 PM WORK MANAGER Prescription approved per [facility], [facility] or [facility] refill protocol. Cecelia Henley - Registered Nurse [facility] MANAGER documented in this encounter Plan of Treatment Not on file documented as of this encounter Visit Diagnoses Diagnosis Benign essential hypertension Essential hypertension, benign documented in this encounter Additional Health Concerns Assessment Noted Time PHQ-9 Depression Total Score: 1 08/05/19 20 9:11 AM CDT documented as of this encounter Care Teams It Operations Manager Relationship Specialty Start Date End Date Leanna Ricahrdson MD PCP - General Internal Medicine 04/12/15 03/04/21 Suri Carmona PA-C [address] [place] [address] BROOKE VERDUZCO [address] PCP - General Internal Medicine 03/05/21 Leanna Richardson MD [address] [place] [address] Assigned PCP 04/16/15 03/10/21 Suri Carmona PA-C [address] [place] [address] BROOKE VERDUZCO [address] Assigned PCP 03/11/21 Catalina Lowery DPM, Podiatry/Foot and Ankle Surgery [address] [place] [address] Assigned Musculoskeletal Provider 04/05/23 documented as of this encounter
--- OUTSIDE RECORDS SUMMARY | 2023-08-12 23:28 | XMS_ITS | Encounter Summary ---
Author Name Unknown Organization [place] Address [facility] [place] [address] Care Team Providers Care Technology And Engineering Teacher Name Role Phone Leanna Richardson MD Primary Care Provider + [phone] Leanna Richardson MD Unavailable [phone] Leanna Richardson MD Unavailable [phone] Suri Carmona PA-C Primary Care Provider + [phone] Suri Carmona PA-C Unavailable [phone] Catalina Lowery DPM, Podiatry /Foot and Ankle Surgery Unavailable Encounter Details Date Type Department Care Team (Late st Contact Info) Description 06/20/2016 [facility] [address] [place] [address] Fidelia Crouch LPN Social History Tobacco Use [...] on filedocumented in this encounter Care Teams Technology And Engineering Teacher Relationship Specialty Start Date End Date Leanna Richardson MD PCP - General Internal Medicine 04/12/15 03/04/21 Leanna Richardson MD [address] [place] [address] PCP - Assigned PCP 04/16/15 06/23/18 Suri Carmona PA-C [address] [place] [place] [address] BROOKE VERDUZCO [address] PCP - General Internal Medicine 03/05/21 Leanna Richardson MD [address] [place] [address] Assigned PCP 04/16/15 03/10/21 Suri Carmona PA-C [address] [place] [place] [address] BROOKE VERDUZCO [address] Assigned PCP 03/11/21 Catalina Lowery, DPJenae, Podiatry/Foot and Ankle Surgery [address] [place] [address] Assigned Musculoskeletal Provider 04/05/23 documented as of this encounter
--- OUTSIDE RECORDS SUMMARY | 2023-08-12 23:28 | XMS_ITS | Encounter Summary ---
Author Name Unknown Organization [place] Address [facility] [place] [address] Care Team Providers Care Aeronautical Inspector Name Role Phone Suri Carmona PA-C Primary Care Provider [phone] Suri Carmona PA-C Unavailable [phone] Catalina LoweryM, Podiatry /Foot and Ankle Surgery Unavailable Reason for Visit * Reason Onset Date Comments Panel Management 04/28/2023 Patient Quality Outreach Encounter Details Date Type Department Care Team (Late st Contact Info) Description [facility] [address] [place] [address] [place] [address] Suri Carmona PA-C [address] [place] [address] BROOKE VERDUZCO [address] Panel Management (Patient Quality Outreach/) Social History Tobacco Use Types Packs/Day Years [...] encounter Miscellaneous Notes * Telephone Encounter - Vandana Flores - 05/19/2023 10:27 AM CST Patient Quality Outreach Patient is due for the following: Diabetes - Eye Exam Breast Cancer Screening - Mammogram Next Steps: Schedule a Diabetic Eye Exam and Mammogram Type of outreach: Sent letter. Next Steps: Reach out within 90 days via MyChart and Letter. Max number of attempts reached: Yes. Will try again in 90 days if patient still on fail list. Questions for provider review: Serge Flores RAL ADMINISTRATOR * Telephone Encounter - Vandana Flores - 04/28/2023 3:35 PM CST Patient Quality Outreach Patient is due for the following: Diabetes - A1C and Eye Exam Breast Cancer Screening - Mammogram Next Steps: Schedule a Mammogram and Diabetic follow up Type of outreach: Sent Hypercontext message. Questions for provider review: None Vandana Flores RAL ADMINISTRATOR documented in this encounter Plan of Treatment Not on file documented as of this encounter Visit Diagnoses Not on filedocumented in this encounter Additional Health Concerns Assessment Noted Time PHQ-9 Depression Total Score: 1 08/05/19 20 9:11 AM CDT documented as of this encounter Care Teams Aeronautical Inspector Relationship Specialty Start Date End Date Suri Carmona PA-C [address] [place] [address] BROOKE VEDRUZCO [address] PCP - General Internal Medicine 03/05/21 Suri Carmona PA-C [address] [place] [address] BROOKE VERDUZCO [address] Assigned PCP 03/11/21 Catalina Lowery, RUBEN, Podiatry/Foot and Ankle Surgery [address] [place] [address] Assigned Musculoskeletal Provider 04/05/23 documented as of this encounter
--- OUTSIDE RECORDS SUMMARY | 2023-08-12 23:28 | XMS_ITS | Clinical Summary ---
Author Name Unknown Organization [facility] Address [address] [place] [address] Care Team Providers Care Plug Overwrap Machine Tender Name Role Phone Suri Carmona PA-C Primary Care Provider [phone] Suri Carmona PA-C Unavailable [phone] Catalina Lowery DPM, Podiatry /Foot and Ankle [...] per insurance. 100 each 01/09/2021 Active Methylcobalamin (E86-LTDESD PO) Active gabapentin (NEURONTIN) 300 MG capsule [...] (Adacel) 09/01/2009 Zoster recombinant adjuvanted (SHINGRIX) 023 Family History Medical History Relation Comments Neurologic Disorder Brother 1 pituitary tu mor/ DI (benign) Tumor Brother 3 Asthma Daughter Severe Allergy I nduced Anesthesia Reaction Father Stopped shavon thing under general Asthma Father Severe seasonal allergies/asthma Coronary Artery Disease Father Diabetes Father pre DM Heart Disease Father CABGx3 Diabetes Maternal Aunt AODM Arthritis Mother Diabetes Mother pre DM Eye Disorder Mother glaucoma Diabetes Paternal Uncle Type II Colon Cancer No family hx of Relation Status Comments Brother 1 Alive Brother 2 Alive Brother 3 Alive Daughter Alive Father car accident 72y rs old 14 yrs ago Maternal Aunt Mother Alive Paternal Uncle Sister Alive Son Alive Social History Tobacco Use Types Packs/Day Years [...] Comments Blood Pressure 118/78 04/02/2023 2:19 PM METAL ROOFING MECHANIC Pulse 70 09/18/2022 11:19 AM CDT Temperature 36.9 ??C (98.5 ??F) 09/18/2022 11:19 AM C DT Respiratory Rate 14 09/18/2022 11:19 AM CDT Oxygen Saturation 97% 09/18/2022 11:19 AM CDT Inhaled Oxygen Concentration - - Weight 93.4 kg (206 lb) 04/02/2023 2:19 PM METAL ROOFING MECHANIC Height 160.4 cm (5' 3.15) 09/18/2022 11:19 AM C DT Body Mass Index 36.32 09/18/2022 11:19 AM CDT Plan of Treatment Health Maintenance Due Date Last Done Comments CT COLONOGRAPHY 1966 FIT 1966 FLEX SIG 1966 sDNA (Cologuard) 1966 Pneumococcal Vaccine: Pediatrics (0 to 5 Years) and At-Risk Patients (6 to 64 Years) (1 of 2 - PCV) 1972 HEPATITIS B IMMUNIZATION (1 of 3 - 19+ 3-dose series) 1985 ZOSTER IMMUNIZATION (2 of 2) 11/13/2022 09/18/2022 COVID-19 Vaccine ( - season) 2022 04/30/2021, 08/01/2020, 07/11/2020 A1C 03/20/2023 09/18/2022, 11/19, 04/02/2021, Additional history exists LIPID 03/20/2023 09/18/2022, 11/19, 08/22/2020, Additional history exists EYE EXAM 04/21/2023 04/21/2022 PHQ-2 (once per calendar year) 2023 09/18/2022, 04/30/2021, 03/05/2021, Additional history exists MAMMO SCREENING 05/17/2023 05/17/2021, 08/0 08/2019, 12/27/2016, Additional history exists ANNUAL REVIEW OF HM ORDERS 09/19/2023 09/18/2022, ASTHMA ACTION PLAN 09/19/2023 09/18/2022, 0 09/18/2022, 09/18/2022, Additional history exists ASTHMA CONTROL TEST 09/19/2023 09/18/2022, 03/05/2021, 08/05/2019, Additional history exists BMP 09/19/2023 09/18/2022, 03/21, 08/22/2020, Additional history exists MICROALBUMIN 09/19/2023 09/18/2022, 11/19, 08/22/2020, Additional history exists YEARLY PREVENTIVE VISIT 09/19/2023 09/19/19 23, 04/30/2021, 11/19/2019, Additional history exists ADVANCE CARE PLANNING 04/30/2026 04/30/2021 HPV TEST 09/19/2027 09/18/2022, 08/21, 11/19/2019, Additional history exists PAP 09/19/2027 09/18/2022, 10/21, 12/27/2016, Additional history exists COLONOSCOPY 09/23/2027 09/22/2017, 09/22/2017 COLORECTAL CANCER SCREENING 09/23/2027 DTAP/TDAP/TD IMMUNIZATION (4 - Td or Tdap) 09/18/2032 09/18/2022, 12/27/2011, 09/01/2009, Additional history exists HIV SCREENING Completed 08/13/2005, 05/01/2004 HEPATITIS C SCREENING Completed 08/07/2017 INFLUENZA VACCINE Completed 01/13/2023, , 03/06/2017, Additional history exists DIABETIC FOOT EXAM Discontinued HPV IMMUNIZATION Aged Out No longer e ligible based on patient's age to complete this topic IPV IMMUNIZATION Aged Out No longer e ligible based on patient's age to complete this topic MENINGITIS IMMUNIZATION Aged Out No l onger eligible based on patient's age to complete this topic RSV MONOCLONAL ANTIBODY Aged Out No l onger eligible based on patient's age to complete this topic Procedures Procedure Name Priority Date/Time Associated Diagnosis [...] SCREENING DIGITAL BILATERAL Routine 05/17/2021 9:02 AM METAL ROOFING MECHANIC Encounter for screening mammogram for breast cancer [...] control, and institution of therapy with an izgqxwodeuj-dzbvwapjpp-lzvphd (ETELVINA) inhibitor (if the patient can tolerate it). ?? Urine MID-STREAM URINE SPECIMEN / Unknown Non-blood Collection / Unknown 09/18/2022 1:48 PM CDT 09/18/2022 1:48 PM CDT Suri Carmona PA-C LAB - URINE ORDERA SUNIL [facility] [address] [facility], [address] [place] [address], [facility] [phone] * (ABNORMAL) Lipid panel reflex to direct LDL Fasting (09/18/2022 12:10 PM CDT) Pathologist [facility] Cholesterol 197 <200 mg/dL 09/18/2022 10:39 PM [...] than or equal to 220 mg/dL Suri Carmona PA-C LAB - BLOOD ORDERA BLES U [facility] [address] [facility], [address] [place] [address], [facility] [phone] * (ABNORMAL) HEMOGLOBIN A1C (09/18/2022 12:10 PM [...] Carmona PA-C LAB - BLOOD ORDERA BLES EC LABORATORY [facility] [address] [place] [address] Lab (no room number, 1st floor of clinic) [place] [address], [facility] [phone] * (ABNORMAL) BASIC METABOLIC PANEL (09/18/2022 12:10 PM CDT) Pathologist [facility] Sodium 139 136 - 145 mmol/L 09/18/2022 [...] >60 mL/min/1.7 3m2 09/18/2022 10:39 PM CDT U LABORATORY Comment:eGFR calculated us2020 CKD-EPI equation. Blood STRUCTURE OF LEFT UPPER LIMB / Unknown Venipuncture / Unknown 09/18/2022 12:10 PM CDT 09/18/2022 12:10 PM CDT Suri Vivary PA-C LAB - BLOOD ORDERA BLES UU [facility] [address] [facility], [address] [place] [address], [facility] [phone] * Pap Screen with HPV - recommended [...] component of this testing was completed at [facility] 09/20/2022 2:47 PM CDT [facility] LAB[facility] Brushing CERVIX UTERI STRUCTURE / Unknown 09/18/2022 11:35 AM CDT 09/18/2022 12:15 PM CDT Suri Vivary PA-C LAB - [facility] Specialty Lab [address] [facility] [address], [address] [place] [address], [facility] [phone] * HPV High Risk Types DNA Cervical (09/18/2022 11:35 AM CDT) Other HR HPV Negative Negative 09/23/2022 4:03 PM CDT [facility] HPV16 DNA Negative Negative 09/23/2022 4:03 PM CDT [facility] HPV18 DNA Negative Negative 09/23/2022 4:03 PM CDT [facility] FINAL DIAGNOSIS This patient's sample is negative for HPV DNA. This test was developed and its performance characteristics determined by the [facility], Molecular Diagnostics Laboratory. It has not been [...] CDT Suri Carmona PA-C LAB - BLOOD MARKA BLES [facility] Molecular Diagnostics [address] [facility] [address] [facility], [address] [place] [address], [facility] [phone] * Eye Exam - HIM Scan (04/21/2022) RETINOPATHY UNKNOWN Narrative Darcy Cosme - 04/21/2022 Cece Casey CMA ??P Abstract Quality Initiatives Please abstract the following data from this visit with this patient into the appropriate field in Epic: Eye exam with ophthalmology on this date: Apr 2022 Exam Location: [facility] Patient Reported OTHER * MA SCREENING DIGITAL BILAT - Future (s+30) (05/17/2021 9:02 AM METAL ROOFING MECHANIC) Anatomical Region Laterality Modality Breast Bilateral Mammography Narrative 05/17/2021 10:47 AM METAL ROOFING MECHANIC BILATERAL FULL FIELD DIGITAL SCREENING MAMMOGRAM Performed [...] will be communicated to the patient. Suri Carmona PA-C IMG MAMMOGRAPHY OR DERABLES * COLONOSCOPY (09/22/2017 7:31 AM CDT) COLONOSCOPY [facility] Patient Name: Lou Clark Abbe Procedure Date: [...] The ?Olympus Peds Colonoscope Model #[id number]-H190L, ?[place]#131, SN#[id number] was introduced through the ?anus and advanced [...] Note Initiated On: 09/22/2017 7:31 AM MRN: ?[id number] Procedure Date: ? 09/22/2017 7:31:52 AM Scope Withdrawal Time: 0 hours 8 minutes 7 seconds Total Procedure Duration: 0 hours 13 minutes 19 seconds Estimated Blood Loss: ? Scope In: 7:42:35 AM Scope Out: 7:55:54 AM RADIOLOGY RESULTS 09/22/2017 7:31 AM CDT Doug Mendoza MD PROCEDURES RADIOLOGY RESULTS * Hepatitis C antibody (08/07/2017 7:51 AM CDT) Hepatitis C Antibody Nonreactive NR^Nonre active 08/07/2017 8:54 PM CDT [facility] Comment: Assay performance characteristics have not been established for newborns, infants, and children Blood specimen (specimen) 08/07/2017 7:51 AM CDT 08/07/2017 7:56 AM CDT Leanna Richardson MD LAB - BLOOD ORDERA BLES [address] [address] * HIV-1/HIV-2, SCREEN (08/13/2005 8:46 AM CDT) HIV 1&2 Antibody Negative NEG [facility] 08/13/2005 8:46 AM CDT 08/13/2005 8:51 AM CDT Doug Mendoza MD LABORATORY [facility] from Last 3 Months or Most Recently Relevant to Health Maintenance Care Teams Plug Overwrap Machine Tender Relationship Specialty Start Date End Date Suri Carmona PA-C [address] [place] [address] [place] [address] PCP - General Internal Medicine 03/05/21 Suri Carmona PA-C [address] [place] [address] [place] [address] Assigned PCP 03/11/21 Catalina Lowery DPM, Podiatry/Foot and Ankle Surgery [address] [place] [address] Assigned Musculoskeletal Provider 04/05/23
--- OUTSIDE RECORDS SUMMARY | 2023-08-12 23:28 | XMS_ITS | Clinical Summary ---
Author Name Unknown Organization [facility] Address [address] [place] [address] Care Team Providers Care Forest Ecology Professor Name Role Phone Leanna Richardson MD Primary Care Provider Source Comments You are receiving this document as you are listed as the primary care provider,follow-up provider, or the patient has been referred to you for consultation.This is in compliance with the Medicare and[facility] EHR Incentive Program,which states Providers who transition their patient to another setting of careor provider of care or refers their patient to another provider of care shouldprovide summary care record for each transition of care or referral. [facility] Allergies No known active allergies Medications Medication Sig Dispensed Refills Start Date End Date Status ALBUterol sulfate HFA 108 (90 BASE) MCG/ACT inhaler 1-2 puffs every 4 hours as needed. 25.5 06/18/2010 Active cetirizine (AKA ZYRTEC) 10 MG tabletIndications:STEVE WEBB Mon Mar 20, 2015 1:10 PM Received from: [facility] Take by mouth. 03/20/2015 Active acetaminophen (TYLENOL) 325 MG tablet Take 325-650 mg by mouth every 4 hours as needed. Maximum 4000mg per 24 hours 04/30/2012 Active ibuprofen (MOTRIN) 200 MG tablet Take 200 mg by mouth every 6 hours as needed. 04/30/2012 Active hydroCHLOROthiazide (ORETIC) 25 MG tablet Take 25 mg by mouth daily. Active aspirin 81 MG tablet Take 81 mg by mouth daily. Active omeprazole (PRILOSEC) 40 MG capsule Take 40 mg by mouth daily. Take 1 hour before a meal. Active EPINEPHrine (EPIPEN) 0.3 MG/0.3ML injection Inject 0.3 mg intramuscularly. 12/27/2016 Active multivitamin with minerals (THERA M PLUS) tablet Take 1 Tablet by mouth. 12/27/2016 Active Active Problems No known active problems Immunizations Name Administration Dates Next Due Fluvirin Vaccine 04/30/2012 Influenza, Unspecified Formulation 03/02/1992 TDAP (BOOSTRIX) 12/27/2011 Social History Tobacco Use Types Packs/Day Years Used Date Smoking Tobacco: Never Smokeless Tobacco: Never Alcohol Use Standard Drinks/Week Comments Yes 3 (1 standard drink = 0.6 oz pur e alcohol) Sex and Gender Information Value Date Recorded Sex Assigned at Not on file Gender Identity Not on file Sexual Orientation Not on file Last Filed Vital Signs Vital Sign Reading Time Taken Comments Blood Pressure 142/82 04/06/2018 2:55 PM CERTIFIED ADDICTION COUNSELOR Pulse 89 04/06/2018 2:55 PM CERTIFIED ADDICTION COUNSELOR Temperature 36.8 ??C (98.2 ??F) 04/06/2018 2:55 PM CS T Respiratory Rate 16 04/06/2018 2:55 PM CERTIFIED ADDICTION COUNSELOR Oxygen Saturation 98% 04/06/2018 2:55 PM CERTIFIED ADDICTION COUNSELOR Inhaled Oxygen Concentration - - Weight 98.9 kg (218 lb) 04/06/2018 2:55 PM CERTIFIED ADDICTION COUNSELOR Height 162.6 cm (5' 4.02) 04/06/2018 2:55 PM CS T Body Mass Index 37.4 04/06/2018 2:55 PM CERTIFIED ADDICTION COUNSELOR Plan of Treatment Health Maintenance Due Date Last Done Comments Cervical Cancer Screening Due 1965 Colon Cancer Screening Plan Due 1966 Hep C Screening (Preventive Services) 1966 Mammogram 1966 HIV Screening (Preventive Services) 1982 Adult Preventive Visit 1984 HepB (1) 1985 Cholesterol 08/31/2011 Zoster/Shingles (1 of 2) 2016 DTaP/Tdap/Td (3 - Tdap) 12/26/2021 12/27/2011, 09/01 COVID-19 Vaccine ( - season) 2022 08/01/2020, 07/11/2020 Influenza (#1) 2022 03/06/2017, 01/19, 03/07/2015, Additional history exists HepA Aged Out No longer eligi ble based on patient's age to complete this topic Hib Aged Out No longer eligi ble based on patient's age to complete this topic IPV (Polio) Aged Out No longer eligi ble based on patient's age to complete this topic MCV4 Aged Out No longer eligi ble based on patient's age to complete this topic Pneumococcal Aged Out No longer eligi ble based on patient's age to complete this topic Care Teams Forest Ecology Professor Relationship Specialty Start Date End Date Leanna Richardson MD [address] [place] [address] PCP - General Internal Medicine 05/28/18
--- OUTSIDE RECORDS SUMMARY | 2023-08-12 23:28 | XMS_ITS | Encounter Summary ---
Author Name Unknown Organization [facility] Address Replaced by [facility] [place] [address] Care Team Providers Care Conference Planning Manager Name Role Phone Leanna Richardson MD Primary Care Provider + [phone] Leanna Richardson MD Unavailable [phone] Leanna Richardson MD Unavailable [phone] Suri Carmona PA-C Primary Care Provider + [phone] Suri Carmona PA-C Unavailable [phone] Catalina Loweyr DPM, Podiatry /Foot and Ankle Surgery Unavailable Encounter Details Date Type Department Care Team (Late st Contact Info) Description 07/03/2016 [facility] Medical Advice [address] [place] [address] Fidelia Crouch LPN Social History Tobacco Use [...] on filedocumented in this encounter Care Teams Conference Planning Manager Relationship Specialty Start Date End Date Leanna Richardson MD PCP - General Internal Medicine 04/12/15 03/04/21 Leanna Richardson MD [address] [place] [address] PCP - Assigned PCP 04/16/15 06/23/18 Suri Carmona PA-C [address] [place] [address] [place] [address] PCP - General Internal Medicine 03/05/21 Lenana Richardson MD [address] [place] [address] Assigned PCP 04/16/15 03/10/21 Suri Carmona PA-C [address] [place] [address] [place] [address] Assigned PCP 03/11/21 Catalina Lowery, DPJenae, Podiatry/Foot and Ankle Surgery [address] [place] [address] Assigned Musculoskeletal Provider 04/05/23 documented as of this encounter
--- OUTSIDE RECORDS SUMMARY | 2023-08-12 23:28 | XMS_ITS | Encounter Summary ---
Author Name Unknown Organization [facility] Address [facility] [place] [address] Care Team Providers Care Customs Appraiser Name Role Phone Suri Carmona PA-C Primary Care Provider +- [phone] Suri Carmona PA-C Unavailable [phone] Catalina Lowery DPM, Podiatry /Foot and Ankle Surgery Unavailable Reason for Visit * Reason Comments Medication Refill Encounter Details Date Type Department Care Team (Late st Contact Info) Description 08/14/[address] [place] [address] Shannan Smith PA-C [address] [facility] [place] [address] Medication Refill Social History Tobacco Use Types [...] encounter Miscellaneous Notes * Telephone Encounter - Linda Hogan - 08/19/2022 1:16 PM CDT Spoke to pt, pt going to schedule on myChart, didn't have calendar with her. Linda Phillips Die Try Out Worker [employer] * Telephone Encounter - Cece Casey CMA - 08/15/2022 11:29 AM CDT Left message on voicemail for patient to call back. Zan Emanuel CMA Needs to schedule annual exam * Telephone Encounter - Suri Carmona PA-C - 08/14/2022 8:40 AM CDT Due for office visit, only 3 months supply submitted. Please call and inform pt to schedule Annual exam. documented in this encounter Plan of Treatment Not on file documented as of this encounter Visit Diagnoses Diagnosis Controlled type 2 diabetes mellitus without complication, without long-term current use of insulin (H) documented in this encounter Additional Health Concerns Assessment Noted Time PHQ-9 Depression Total Score: 1 08/05/19 20 9:11 AM CDT documented as of this encounter Care Teams Customs Appraiser Relationship Specialty Start Date End Date Suri Carmona PA-C [address] [place] [address] [place] [address] PCP - General Internal Medicine 03/05/21 Suri Carmona PA-C [address] [place] [address] [place] [address] Assigned PCP 03/11/21 Catalina Lowery, RUBEN, Podiatry/Foot and Ankle Surgery [address] [place] [address] Assigned Musculoskeletal Provider 04/05/23 documented as of this encounter
--- OUTSIDE RECORDS SUMMARY | 2023-08-12 23:29 | XMS_ITS | Encounter Summary ---
Author Name Unknown Organization [facility] Address [facility] [place] [address] Care Team Providers Care Tariff Compiling Clerk Name Role Phone Leanna Richardson MD Primary Care Provider + [phone] Leanna Richardson MD Unavailable [phone] Leanna Richardson MD Unavailable [phone] Suri Carmona PA-C Primary Care Provider [phone] Suri Carmona PA-C Unavailable [phone] Catalina Lowery DPM, Podiatry /Foot and Ankle Surgery Unavailable Encounter Details Date Type Department Care Team (Late st Contact Info) Description 04/16/2018 [facility] [address] [place] [address] Leanna Richardson MD [address] [place] [id number] Social History Tobacco Use Types Packs/Day Years [...] Total Score: 1 03/03/20 18 2:28 PM EDGING MACHINE SETTER documented as of this encounter Care Teams Tariff Compiling Clerk Relationship Specialty Start Date End Date Leanna Richardson MD PCP - General Internal Medicine 04/12/15 03/04/21 Leanna Richardson MD [address] [address] PCP - Assigned PCP 04/16/15 06/23/18 Suri Carmona PA-C [address] [place] [address] BROOKE VERDUZ[place] [address] PCP - General Internal Medicine 03/05/21 Leanna Richardson MD [address] [place] [address] Assigned PCP 04/16/15 03/10/21 Suri Carmona PA-C [address] [place] [address] [place] [address] Assigned PCP 03/11/21 Catalina Lowery DPM, Podiatry/Foot and Ankle Surgery [address] [place] [address] Assigned Musculoskeletal Provider 04/05/23 documented as of this encounter
[2023-08-12 23:50] LABS: Basophils Absolute Auto 0.02 K/uL (0.00-0.30); Basophils Percent Auto 0.3 % (0.0-3.0); Eosinophils Absolute Auto 0.22 K/uL (0.00-0.50); Eosinophils Percent Auto 3.7 % (0.0-7.0); Hematocrit 38.3 % (33.0-51.0); Hemoglobin* 13.6 gm/dL (12.0-16.0); Immature Granulocytes Abs Auto 0.02 K/uL (0.00-0.30); Immature Granulocytes Pct Auto 0.3 %; Lymphocytes Absolute Auto 2.28 K/uL (0.90-2.90); Mean Corpuscular HGB Conc 36 gm/dL (32-36); Mean Corpuscular Hemoglobin 30 pg (26-34); Mean Corpuscular Volume 84 fL (80-100); Monocytes Percent Auto 6.3 % (0.0-11.0); Neutrophils Absolute Auto 3.08 K/uL (1.7-7.0); Neutrophils Percent Auto 51.4 % (42.0-72.0); Platelet Count* 231 K/uL (140-440); RDW Coefficient of Variation % 12.6 % (11.5-15.5); Red Blood Count 4.54 m/uL (4.00-5.20)
[2023-08-12 23:52] LABS: Slide Review Reflex No
[2023-08-13] VITALS (14 sets, daily range): BP systolic 103–157; BP diastolic 63–89; PULSE 64–73; O2SAT 94–97
[2023-08-13] LABS: Albumin* 4.2 g/dL (3.3-5.0); Chloride* 101 mmol/L (96-114); Sodium* 136 mmol/L (135-149)
[2023-08-13 00:01] LABS: Potassium* 3.7 mmol/L (3.6-5.1)
[2023-08-13 00:03] LABS: Anion Gap 5 mEq/L (7-15); Aspartate Amino Transferase* 60 U/L (12-35); Bilirubin Total* 0.5 mg/dL (0.1-1.5); Carbon Dioxide* 30 mmol/L (20-32); Creatinine* 0.6 mg/dL (0.5-1.5); Est. Creatinine Clearance* 90.41; Estimated Glomerular Filt Rate 105 ml/min
[2023-08-13 00:04] LABS: Alanine Aminotransferase* 63 U/L (4-35); Alkaline Phosphatase* 109 U/L (40-150); Blood Urea Nitrogen* 18 mg/dL (7-30); Calcium* 9.5 mg/dL (8.4-10.6); Glucose* 313 mg/dL (60-115); Total Protein* 7.3 g/dL (6.0-8.3)
[2023-08-13 00:16] LABS: NT Pro B Type NatriureticPept* < 20 pg/mL; Troponin I* < 0.01 ng/mL (0.01-0.04)
[2023-08-13] MEDS: FAMOTIDINE 20 MG TABLET PO (01:35)
== END 2023-08-13 01:40 | disposition home or self-care (01) ==
PROVIDERS: Emergency Provider Family Medicine
DX: K22.4 Dyskinesia of esophagus (principal)
CPT/HCPCS: 36415; 71046; 80053; 83880; 84484; 85025; 86140; 99284; A9270